=== PATIENT | female | born 1930 | race Caucasian/White ===

== ENCOUNTER 2021-01-13 11:04 | Day surgery (SDC) | payer MEDICARE ==
[~2021-01-13] VITALS: Ht 157.5 cm; Wt 50.0 kg
[2021-01-13 11:54] VITALS: BP 145/66
[2021-01-13] MEDS ORDERED: IV RINGERS,LACTATED 1000ML 1,000 ML IV SCH ×2 (12:00→16:15)
[2021-01-13] MEDS ORDERED: ceFAZolin SODIUM IV Push 1 GM VIAL. IVP ONE (12:15)
[2021-01-13] MEDS ORDERED: PROPOFOL 10 MG/ML (20ML) VIAL. IV ONE (14:03)
[2021-01-13] MEDS ORDERED: LIDOCAINE 2% PF 5 ML VIAL. ONE (14:03)
[2021-01-13] MEDS ORDERED: fentaNYL PF VIAL 100 MCG/2 ML VIAL ONE ×2 (14:04→16:11)
[2021-01-13] MEDS ORDERED: ROCURONIUM 50 MG/5 ML VIAL. ONE (14:06)
[2021-01-13] MEDS ORDERED: TRAM50TA PO (14:26)
[2021-01-13] MEDS ORDERED: PHENYLEPHRINE in 0.9% NACL PF 1 MG/10 ML SYRINGE. IV ONE (14:47)
[2021-01-13] MEDS ORDERED: SEVOFLURANE 61 TO 120 MINUTES. IH ONE (14:58)
[2021-01-13] MEDS ORDERED: ONDANSETRON PF 4 MG/2 ML VIAL. ONE (14:58)
[2021-01-13] MEDS ORDERED: DEXAMETHASONE SOD PHOS 4 MG/ML VIAL ONE (14:58)
[2021-01-13] MEDS ORDERED: BUPIVACAINE MPF 0.25% 30 ML VIAL. ONE (15:07)
[2021-01-13] MEDS ORDERED: NEOSTIGMINE METHYLSULFATE 5 MG/5 ML SYRINGE. ONE (15:08)
[2021-01-13] MEDS ORDERED: GLYCOPYRROLATE 1 MG/5 ML VIAL. ONE (15:08)
--- NOTE | 2021-01-13 15:31 | PDOC4 ---
OPERATIVE NOTE Date: Date: Jan 13, 2021 Pre-Op Diagnosis: Comminuted intra-articular fracture with displacement right distal radius Post-Op Diagnosis: Same Procedure Performed: ORIF right distal radius Surgeon: Yaneli Anesthesia Type: General Blood Loss: 20 cc Specimans Obtained: None Findings: See dictation Complications: None REX MCGREGOR Jr., DO Jan 13, 2021 15:31
[2021-01-13] MEDS ORDERED: SEVOFLURANE 31 TO 60 MINUTES. IH ONE (15:35)
[2021-01-13] MEDS: fentaNYL PF VIAL 100 MCG/2 ML VIAL IVP PRN ×2 (16:14→16:31)
[2021-01-13] MEDS ORDERED: MORPHINE SULFATE 2 MG/ML INJ. IVP PRN (16:15)
[2021-01-13] MEDS ORDERED: HYDROmorphone 2 MG/ML VIAL IVP PRN (16:15)
[2021-01-13] MEDS ORDERED: fentaNYL PF VIAL 100 MCG/2 ML VIAL IVP PRN (16:15)
[2021-01-13] MEDS ORDERED: PROCHLORPERAZINE 10 MG/2 ML VIAL. IVP PRN (16:15)
[2021-01-13 16:28] VITALS: BP 177/96
--- NOTE | 2021-01-13 20:42 | OP ---
DATE OF SURGERY: 01/13/2021 PREOPERATIVE DIAGNOSIS: Comminuted intraarticular displaced fracture, right distal radius. POSTOPERATIVE DIAGNOSIS: Comminuted intraarticular displaced fracture, right distal radius. PROCEDURE: Open reduction and internal fixation, right distal radius. SURGEON: Xavier Groves Jr, DO ANESTHESIA: General. COMPLICATIONS: None. ESTIMATED BLOOD LOSS: 20 mL. Standard dictation for the assistant sales manager. DESCRIPTION OF PROCEDURE: The patient was taken to the operative suite, given a general anesthetic. The right upper extremity was then prepped and draped in a sterile fashion. A L-type of incision was made, beginning toward the radial styloid and centering over the flexor carpi radialis. This was through the skin and subcutaneous tissues. Careful dissection was taken through deeper structures. Neurovascular structures were protected and identified. This was carefully dissected by digital dissection just on the ulnar side of the flexor carpi radialis bringing us down to the pronator quadratus, which was torn at this point. The remainder of this was removed at this point. Following this, the reduction was undertaken. There was satisfactory alignment, but very thin bone distally. Under direct visualization; however, the open reduction was held and the plate was affixed to the volar aspect of the wrist using standard AO technique. Proximal screws were noted to be nonlocking screws. All the distal screws secondary to bone quality as well as need for placement were done under direct visualization with x-ray and it was also done with locking screws. There was satisfactory reduction of the fracture in both AP and lateral projections. The wound was then thoroughly irrigated. Superficial tissues were reapproximated using 3-0 Vicryl in an interrupted fashion. The skin was reapproximated using nylon. This was done in an interrupted fashion. Sterile dressing was applied. Tourniquet was deflated with good return of pulses and capillary refill. After the splint was placed, the patient was then taken from the operative bed to the postoperative bed, taken to the PACU in stable condition. TOSHA DR: Michi TID: [id number]
== END 2021-01-13 17:08 | disposition home or self-care (01) ==
LOC: SURG 11:04
PROVIDERS: ATTEND Orthopaedic Surgery
DX: S52.571A Other intraarticular fracture of lower end of right radius, initial encounter for closed fracture (principal); Z20.828 Contact with and (suspected) exposure to other viral communicable diseases; Z79.899 Other long term (current) drug therapy; Z98.890 Other specified postprocedural states; X58.XXXA Exposure to other specified factors, initial encounter; Y93.89 Activity, other specified; Y92.89 Other specified places as the place of occurrence of the external cause
CPT/HCPCS: 25608; 76000; 87426; A4565; A4930; A6402; A6449; C1713; J0690; J1100; J2370; J2405; J2704; J2710; J3010; J3490

== ENCOUNTER 2021-01-28 14:02 | Inpatient (IN) | payer MEDICARE ==
[~2021-01-28] VITALS: Ht 157.5 cm; Wt 45.8 kg
[~2021-01-28 14:02] MED LIST: TRAM50TA PO
--- NOTE | 2021-01-28 14:45 | RAD ---
XR CHEST 1V INDICATION: cp . COMPARISON STUDY: None. FINDINGS: Lungs: Normal lung volume. No pulmonary mass or consolidation. The tracheobronchial tree and hilar st ructures are normal. Pleura: No pleural effusion or pneumothorax. Heart and Mediastinum: The cardiomediastinal silhouette is normal. Atherosclerosis of the thoracic ao rta. IMPRESSION: No acute cardiopulmonary process. Electronically signed by: Dawit Valdes MD (01/28/2021 2:42 PM) [facility]
--- NOTE | 2021-01-28 15:27 | EKG ---
[facility] [address] [place] [address] Test Date: 2021-01-28 Test Time: 14:47:00 Pat Name: CHAS DAVID Department: Room: Gender: F Security Control Room Officer: : 1930 Requested By: CLAUDIA CRUZ Order Number: [id number] Reading MD: Measurements Intervals [place] Rate: 99 P: AR: QRS: -59 QRSD: 70 T: 69 QT: 330 QTc: 429 Interpretive Statements SINUS RHYTHM ABNORMAL LEFT AXIS DEVIATION LEFT ANTERIOR FASCICULAR BLOCK QRS(T) CONTOUR ABNORMALITY CONSISTENT WITH ANTEROSEPTAL INFARCT AGE UNDETERMINED T ABNORMALITY IN HIGH LATERAL LEADS ABNORMAL ECG RI6.02 No previous ECG available for comparison
--- NOTE | 2021-01-28 15:39 | PHYS DOC ---
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 Reports she never gets out of bed and her roommate called 911 because of this. Also states her left kidney hurts. States if she does get of bed she crawls. Denies any fall, head injury or trauma. Review of Systems: Review of Systems: Constitutional: Denies fever or chills. [] Eyes: Denies change in visual acuity. [] HENT: Denies nasal congestion or sore throat. [] Respiratory: Denies cough or shortness of breath. [] Cardiovascular: Denies chest pain or edema. [] GI: Denies nausea, vomiting, or diarrhea. [] : Denies dysuria or hematuria Musculoskeletal: Denies back pain or joint pain. [] Integument: Denies rash or diaphoresis Neurologic: Denies headache, neck stiffness, focal weakness or sensory changes. [] Endocrine: Denies polyuria or polydipsia. [] Lymphatic: Denies swollen glands. [] Psychiatric: Denies depression or anxiety. [] Heart Score: C/O Chest Pain: No Risk Factors: Risk Factors: DM, Current or recent (<one month) smoker, HTN, HLP, family history of CAD, obesity. Risk Scores: Score 0 - 3: 2.5% MACE over next 6 weeks - Discharge Home Score 4 - 6: 20.3% MACE over next 6 weeks - Admit for Clinical Observation Score 7 - 10: 72.7% MACE over next 6 weeks - Early Invasive Strategies Allergies: Allergies: Allergies Coded Allergies Type Severity Reaction Last Updated Verified No Known Drug Allergies 01/13/21 No Physical Exam: PE: Constitutional: Very thin and frail, no acute distress, non-toxic appearance. HENT: Normocephalic, atraumatic, Eyes: EOMI, conjunctiva normal, no discharge. Neck: Normal range of motion, supple, no nuchal rigidity or meningismus Cardiovascular: S1/2 present, regular rhythm Lungs & Thorax: Speaking in full sentences, bilateral equal chest rise, no tachypnea or increased work of breathing, cannot reproduce any with pain with palpation Abdomen: soft, no tenderness, Skin: Warm, dry, no erythema, no rash. [] Back: No midline spinal step-offs or tenderness, no CVA tenderness. [] Extremities: No tenderness, no cyanosis, Neurologic: Alert,, no focal deficits noted. [] Psychologic: Normal affect, calm mood Current Patient Data: Vital Signs: Vital Signs Date Time Temp Pulse Resp B/P (MAP) Pulse Ox O2 Delivery O2 Flow Rate FiO2 01/28/21 14:10 98.4 103 16 158/74 (102) 93 Room Air 98.4 EKG: EKG: Sinus rhythm 69 bpm, no axis deviation, normal intervals, T wave inversion V2, no ST elevation or ST depression, denies any active chest pressure Radiology/Procedures: Radiology/Procedures: []IMAGING REPORT Signed PATIENT: CHAS DAVID ACCOUNT: [id number] : 1930 LOCATION: ER AGE: 89 SEX: F EXAM STATUS: PRE ER ORD. PHYSICIAN: CLAUDIA CRUZ DO REASON: cp PROCEDURE: PORTABLE CHEST 1V XR CHEST 1V INDICATION: cp . COMPARISON STUDY: None. FINDINGS: Lungs: Normal lung volume. No pulmonary mass or consolidation. The tracheobronchial tree and hilar structures are normal. Pleura: No pleural effusion or pneumothorax. Heart and Mediastinum: The cardiomediastinal silhouette is normal. Atheroscle rosis of the thoracic aorta. IMPRESSION: No acute cardiopulmonary process. Electronically signed by: Medardo Valdes MD (01/28/2021 2:42 PM) [facility] DICTATED and SIGNED BY: MEDARDO VALDES MD DATE: 01/28/21 [id number] IMAGING REPORT Signed PATIENT: CHAS DAVID ACCOUNT: [id number] : 1930 LOCATION: ER AGE: 89 SEX: F EXAM STATUS: REG ER ORD. PHYSICIAN: CLAUDIA CRUZ DO REASON: left rib pain PROCEDURE: CT CHEST WO CONTRAST CT THORAX WO INDICATION: left rib pain COMPARISON STUDY: None. TECHNIQUE: Unenhanced axial images were obtained through the lungs and upper abdomen. Coronal and sagittal multiplanar reconstructions were also obtained. PQRS compliance statement: One or more of the following individualized dose reduction techniques were utilized for this examination: 1. Automated exposure control 2. Adjustment of the mA and/or kV according to patient size 3. Use of iterative reconstruction technique FINDINGS: Lungs and Airways: No pulmonary mass or consolidation. Calcified pulmonary granulomas. Normal central airways. Pleura: The pleural spaces are normal. Heart and Mediastinum: Subcentimeter left thyroid nodule. No axillary or supraclavicular lymphadenopathy. No mediastinal, hilar or retrocrural lymphadenopathy. Calcified mediastinal and hilar lymph nodes consistent with remote granulomatous disease. Normal cardiac size. Coronary artery atherosclerotic disease. Atherosclerosis of the thoracic aorta and branch vessels. Abdomen: Cholecystectomy. Bones and Soft Tissues: T7 and T11 compression deformities, with no osseous retropulsion. Old rib fractures. IMPRESSION: 1. Compression deformities at T7 and T11. Correlate for focal tenderness, and consider MRI if there is concern for acute compression fracture. 2. No pulmonary mass or consolidation. Electronically signed by: Medardo Valdes MD (01/28/2021 4:01 PM) [facility] DICTATED and SIGNED BY: MEDARDO VALDES MD DATE: 01/28/21 [id number] 0 Course & Med Decision Making: Course & Med Decision Making Pertinent Labs and Imaging studies reviewed. (See chart for details) Concern for generalized rib pain, suspected to be chronic HTN and osteoporosis. No other fractures on CT imaging. No history of fall or personal blunt trauma. No midline back pain over thoracic [id number] T7 and T12 compression fractures. Will discharge home with strict ED return precautions were given for incontinence, head injury, confusion or neurologic deficits. Encouraged urgent outpatient follow-up with PMD and orthopedic surgery for compression fractures and pain management. Life-threatening processes were considered but are low suspicion at this time, given history, physical exam and ED workup. Pt was educated on all prescription medications and adverse effects. All patient's questions were answered and pt was stable at time of discharge. Life/limb-threatening differential includes but is not limited to, aortic dissection/aneurysm, cauda equina syndrome, transverse myelitis, spinal cord/e pidural compression syndromes, discitis, spinal stenosis, epidural abscess or hematoma, osteomyelitis, disc herniation, surgical abdomen, stable or unstable fracture, renal/ureteral colic, sepsis, meningitis, musculoskeletal injury, traumatic injury, intraabdominal/retroperitoneal or pelvic bleeding. I have spoken with the patient and/or caregivers. I explained the patient's condition, diagnoses and treatment plan based on the information available to me at this time. I have answered the patient and/or caregiver's questions and addressed any concerns. The patient and/or caregivers have a good understanding of patient's diagnosis, condition and treatment plan as can be expected at this point. Vital signs have been stable. Patient's condition is stable and appropriate for discharge from the emergency department. Patient will pursue further outpatient evaluation with primary care physician or other designated or consulting physician as outlined in the discharge instructions. The patient and/or caregivers are agreeable to this plan of care and follow-up instructions have been explained in detail. The patient and/or caregivers have received these instructions in written form and have expressed an understanding of the discharge instructions. The patient and/or caregivers are aware that any significant change of condition or worsening of symptoms should prompt immediate return to this or the closest emergency department or call to 911. Mat Disclaimer: Mat Disclaimer: This electronic medical record was generated, in whole or in part, using a voice recognition dictation system. Departure Departure Impression: Primary Impression: Generalized pain Additional Impression: Thoracic compression fracture Disposition: 01 HOME / SELF CARE / HOMELESS Condition: STABLE Referrals: CORIE VEGA (PCP) Follow-up with your primary care physician in 24 to 48 hours OR FOLLOW UP WITH FAMILY MEDICINE: [address] [facility], [facility] [address] [place] [address] Patient Instructions: Back, Compression Fracture, Chronic Pain Management Additional Instructions: FOLLOW UP WITH ORTHOPEDICS: FOR DEFINITIVE MANAGEMENT thoracic compression fracture Orthopaedic Surgery [address] [facility] [place] [address] FOLLOW UP WITH PAIN MANAGEMENT: FOR DEFINITIVE MANAGEMENT [facility] [address] [facility], [facility] [address] [place] [address] EMERGENCY DEPARTMENT GENERAL DISCHARGE INSTRUCTIONS Thank you for coming to [facility] Emergency Department (ED) today and trusting us with you care. We trust that you had a positive experience in our Emergency Department. If you wish to speak to the department management, you may call the Director at [phone]. YOUR FOLLOW UP INSTRUCTIONS ARE FOLLOWS: 1. Do you have a private Doctor? If you do not have a private doctor, please ask for a resource list of physicians or clinics that may be able to assist you with follow up care. 2. The Emergency Physicain has interpreted your x-rays. The X-Ray specialist will also review them. If there is a change in the findings, you will be notified in 48 hours when at all possible. 3. A lab test or culture has been done, your results will be reviewed and you will be notified if you need a change in treatment. ADDITIONAL INSTRUCTIONS AND INFORMATION: 1. Your care today has been supervised by a physician who is specially trained in emergency care. Many problems require more than one evaluation for a complete diagnosis and treatment. We recommend that you schedule your follow up appointment as recommended to ensure complete treatment of you illness or injury. If you are unable to obtain follow up care and continue to have a problem, or if your condition worsens, we recommend that you return to the ED. 2. We are not able to safely determine your condition over the phone nor are we able to give sound medical advice over the phone. For these safety reasons, if you call for medical advice we will ask you to come to the ED for further evaluation. 3. If you have any questions regarding these discharge instructions please call the ED at [phone]. SAFETY INFORMATION: In the interest of safety, wellness, and injury prevention; we encourage you to wear your sealbelt, if you smoke; quite smoking, and we encourage family to use a protective helmet for bicycling and other sporting events that present an increased risk for head injury. IF YOUR SYMPTOMS WORSEN OR NEW SYMPTOMS DEVELOP, OR YOU HAVE CONCERNS ABOUT YOUR CONDITION; OR IF YOUR CONDITION WORSENS WHILE YOU ARE WAITING FOR YOUR FOLLOW UP APPOINTMENT; EITHER CONTACT YOUR PRIMARY CARE DOCTOR, THE PHYSICIAN WHOSE NAME AND NUMBER YOU WERE GIVEN, OR RETURN TO THE ED IMMEDIATELY. CLAUDIA CRUZ DO Jan 28, 2021 15:39
[2021-01-28 15:50] LABS: BARBITURATES NEG (NEG); BENZODIAZEPINES NEG (NEG); CANNABINOIDS NEG (NEG); COCAINE NEG (NEG); METHADONE NEG (NEG); OPIATES NEG (NEG); PHENCYCLIDINE NEG (NEG)
[2021-01-28 15:52] LABS: AMPHETAMINE/METHAMPHETAMINE NEG (NEG)
[2021-01-28 15:57] LABS: BILIRUBIN,URINE NEGATIVE (NEG); CLARITY,URINE CLOUDY; COLOR,URINE YELLOW; NITRITE,URINE POSITIVE (NEG); PH,URINE 5.5 (<5.0-8.0); PROTEIN,URINE 30 mg/dL (NEG-TRACE)
--- NOTE | 2021-01-28 16:03 | RAD ---
CT THORAX WO INDICATION: left rib pain COMPARISON STUDY: None. TECHNIQUE: Unenhanced axial images were obtained through the lungs and upper abdomen. Coronal and sa gittal multiplanar reconstructions were also obtained. PQRS compliance statement: One or more of the following individualized dose reduction techniques were utilized for this examinat ion: 1. Automated exposure control 2. Adjustment of the mA and/or kV according to patient size 3. Use of iterative reconstruction technique FINDINGS: Lungs and Airways: No pulmonary mass or consolidation. Calcified pulmonary granulomas. Normal central airways. Pleura: The pleural spaces are normal. Heart and Mediastinum: Subcentimeter left thyroid nodule. No axillary or supraclavicular lymphadenopa thy. No mediastinal, hilar or retrocrural lymphadenopathy. Calcified mediastinal and hilar lymph node s consistent with remote granulomatous disease. Normal cardiac size. Coronary artery atherosclerotic disease. Atherosclerosis of the thoracic aorta and branch vessels. Abdomen: Cholecystectomy. Bones and Soft Tissues: T7 and T11 compression deformities, with no osseous retropulsion. Old rib fra ctures. IMPRESSION: 1. Compression deformities at T7 and T11. Correlate for focal tenderness, and consider MRI if there i s concern for acute compression fracture. 2. No pulmonary mass or consolidation. Electronically signed by: Dawit Valdes MD (01/28/2021 4:01 PM) [facility]
[2021-01-28 16:13] LABS: BACTERIA,URINE MANY /HPF (0-FEW); WBC,URINE TNTC /HPF (0-4)
[2021-01-28 16:27] LABS: BASO % 1 % (0-3); EOS # 0.1 x10^3/uL (0.0-0.7); EOS % 2 % (0-3); HEMATOCRIT 42.9 % (36.0-47.0); HEMOGLOBIN 14.4 g/dL (12.0-15.5); LYMPH # 0.9 x10^3/uL (1.0-4.8); LYMPH % 18 % (24-48); MEAN CORPUSCULAR HEMOGLOBIN 30 pg (25-35); MEAN CORPUSCULAR HGB CONC 34 g/dL (31-37); MEAN CORPUSCULAR VOLUME 89 fL (79-100); MONO # 0.8 x10^3/uL (0.0-1.1); MONO % 15 % (0-9); NEUT # 3.2 x10^3/uL (1.8-7.7); NEUT % 64 % (31-73); PLATELET COUNT 98 x10^3/uL (140-400); RED BLOOD COUNT 4.84 x10^6/uL (3.50-5.40); RED CELL DISTRIBUTION WIDTH 14.5 % (11.5-14.5)
[2021-01-28 16:41] LABS: GFR 52.3; POTASSIUM 4.4 mmol/L (3.5-5.1)
[2021-01-28] MEDS ORDERED: FOSFOMYCIN TROMETHAMINE 3 GM PACKET PO ONE (16:45)
[2021-01-28 16:47] LABS: ALBUMIN 3.3 g/dL (3.4-5.0); ALBUMIN/GLOBULIN RATIO 1.1 (1.0-1.7); TOTAL PROTEIN 6.2 g/dL (6.4-8.2)
[2021-01-28] MEDS ORDERED: ONDANSETRON PF 4 MG/2 ML VIAL. IVP PRN (20:00)
[2021-01-28] MEDS: IV NORMAL SALINE 1000ML BAG 1,000 ML IV SCH (20:00)
--- NOTE | 2021-01-28 22:20 | NUR ---
Admit from ER via [facility] to [facility] room 674. Alert. Talkative. Pleasant. 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 Cardizem drip infusing at 5mg/HR on arrival. Drip started in ER. Transferred from [facility] to bed with 3 person lift. Orientated to room and call light. Reviewed POC to include Card drip and Tele monitor. Instructed to call for assist while out of bed. Verbalized understanding. Resting in bed . Call light at hand. Bed alarm on.
[2021-01-28 23:35] VITALS: BP 135/67
[2021-01-28 23:42] VITALS: BP 114/59
--- NOTE | 2021-01-28 23:55 | EKG ---
[facility] [address] [place] [address] Test Date: 2021-01-28 Test Time: 20:31:33 Pat Name: CHAS DAVID Department: Room: Gender: F Compactor Driver: : 1930 Requested By: CLAUDIA CRUZ Order Number: [id number] Reading MD: Measurements Intervals [place] Rate: 162 P: ND: QRS: -71 QRSD: 66 T: 83 QT: 282 QTc: 470 Interpretive Statements IRREGULAR RHYTHM, NO P-WAVE FOUND ABNORMAL LEFT AXIS DEVIATION LEFT ANTERIOR FASCICULAR BLOCK QRS(T) CONTOUR ABNORMALITY CONSIDER ANTEROSEPTAL MYOCARDIAL DAMAGE T ABNORMALITY IN HIGH LATERAL LEADS ABNORMAL ECG RI6.01 No previous ECG available for comparison
[2021-01-29] VITALS (16 sets, daily range): BP systolic 82–160; BP diastolic 48–96
[2021-01-29] MEDS: IV NORMAL SALINE 1000ML BAG 1,000 ML IV SCH (09:20)
--- NOTE | 2021-01-29 09:48 | PDOC1 ---
History and Physical Date of Admission Date of Admission DATE: 01/29/21 TIME: 09:47 Identification/Chief Complaint Chief Complaint back and rib pain, inability to ambulate, new onset a fib in ER , A FIB RVR rib cage pain. / around her left breast area History of Present Illness History of Present Illness 89 yo blind F presented to the ED brought in by EMS stating "My ribs hurt all over, I am just old." she "has a knot" in her left breast. Reports limited mobility roommate called 911 because of this. / her left kidney hurts. States if she does get of bed she crawls. Denies any fall, head injury or trauma. / No midline back pain over thoracic uisgn-[id number] ct c/w T7 and T12 compression fractures TROPONIN I NEG X 3 Admitted with chest wall pain, tachycardia, inability for self care, patient is legally blind, noted to be hypotensive, iv fluids ordered, probable UTI , Noted to be in afib with RVR , new onset TACHYCARDIA likely associated with acute pain/ Afib RVR iv CARDIZEM DRIP STARTED IN ER Past Medical History Past Medical History Past Medical History Past Surgical History: Other Additional Past Surgical Histo: unknown Smoking Status: Never Smoker Alcohol Use: None FHX HTN Cardiovascular: HTN Hepatobiliary: No pertinent hx Musculoskeletal: low back pain, Osteoarthritis Renal/: No pertinent hx, Chronic renal insuff Dermatology: No pertinent hx Family History Family History: Hypertension Social History Smoke: No ALCOHOL: none Drugs: None Current Problem List Problem List Problems Medical Problems: (1) Generalized pain Status: Acute (2) Thoracic compression fracture Status: Acute Current Medications Current Medications Current Medications Fosfomycin Tromethamine (Monurol) 3 gm 1X ONCE PO Last administered on 01/28/21at 17:05; Start 01/28/21 at 16:45; Stop 01/28/21 at 16:46; Status DC Ondansetron HCl (Zofran) 4 mg PRN Q8HRS PRN IVP NAUSEA/VOMITING; Start 01/28/21 at 20:00; Stop 01/29/21 at 19:59 Sodium Chloride 1,000 ml @ 75 mls/hr [id number] IV Last administered on 01/28/21at 20:00; Start 01/28/21 at 20:00; Stop 9/15/21 at 19:59 Diltiazem HCl (Cardizem Iv Push) 10 mg 1X ONCE IVP Last administered on 01/28/21at 21:00; Start 01/28/21 at 21:00; Stop 01/28/21 at 21:01; Status DC Diltiazem HCl 125 mg/Sodium Chloride 125 ml @ 5 mls/hr 1X ONCE IV Last administered on 01/28/21at 20:59; Start 01/28/21 at 21:00; Stop 01/29/21 at 21:59 Active Scripts Active Reported No Known Medications Prior To Admisstion (Info) Each 1 Each DAILY Allergies Allergies: Coded Allergies: No Known Drug Allergies (Unverified , 01/13/21) ROS Review of System 14 PT ROS OTHERWISE NEG General: YES: Fatigue; No: Chills, Night Sweats, Malaise, Appetite, Other PSYCHOLOGICAL ROS: YES: Anxiety; No: Behavioral Disorder, Concentration difficultie, Decreased libido, Depression, Disorientation, Hallucinations, Hostility, Irritablity, Memory difficulties, Mood Swings, Obsessive thoughts, Physical abuse, Sexual abuse, Sleep disturbances, Suicidal ideation, Other Eyes: Yes Loss of vision HEENT: No: Heacaches, Visual Changes, Hearing change, Nasal congestion, Nasal discharge, Oral lesions, Sinus pain, Sore Throat, Epistaxis, Sneezing, Snoring, Tinnitus, Vertigo, Vocal changes, Other ALLERGY AND IMMUNOLOGY: No: Hives, Insect Bite Sensitivity, Itchy/Watery Eyes, Nasal Congestion, Post Nasal Drip, Seasonal Allergies, Other Hematological and Lymphatic: No: Bleeding Problems, Blood Clots, Blood Transfusions, Brusing, Night Sweats, Pallor, Swollen Lymph Nodes, Other ENDOCRINE: No: Breast Changes, Galactorrhea, Hair Pattern Changes, Hot Flashes, Malaise/lethargy, Mood Swings, Palpitations, Polydipsia/polyuria, Skin Changes, Temperature Intolerance, Unexpected Weight Changes, Other Breast: No New/Changing Breast Lumps, No Nipple changes, No Nipple discharge, No Other Respiratory: No: Cough, Hemoptysis, Orthopnea, Pleuritic Pain, Shortness of breath, SOB with excertion, Sputum Changes, Stridor, Tachypnea, Wheezing, Other Cardiovascular: No Chest Pain, No Palpitations, No Orthopnea, No Paroxysmal Noc. Dyspnea, No Edema, No Lt Headedness, No Other Gastrointestinal: No Nausea, No Vomiting, No Abdominal Pain, No Diarrhea, No Constipation, No Melena, No Hematochezia, No Other Genitourinary: No Dysuria, No Frequency, No Incontinence, No Hematuria, No Retention, No Discharge, No Urgency, No Pain, No Flank Pain, No Other, No , No , No , No , No , No , No Musculoskeletal: Yes Gait Disturbance, Yes Joint Stiffness, Yes Muscular Weakness Neurological: Yes Gait Disturbance; No Behavorial Changes, No Bowel/Bladder ControlChng, No Confusion, No Dizziness, No Headaches, No Impaired Coord/balance, No Memory Loss, No Numbness/Tingling, No Seizures, No Speech Problems, No Tremors, No Visual Changes, No Weakness, No Other Skin: Yes Dry Skin; No Eczema, No Hair Changes, No Lumps, No Mole Changes, No Mottling, No Nail Changes, No Pruritus, No Rash, No Skin Lesion Changes, No Other, No Acne Physical Exam General: Alert, Oriented X3, Cooperative, No acute distress HEENT: Atraumatic, Mucous membr. moist/pink, Other (BLIND) Heart: RRR, no thrills, no rubs, no gallops, irregularly irregular Breasts: Not examined Abdomen: Normal bowel sounds, Soft, No tenderness, Other (thin) Rectal Exam: not examined PELVIC: Examination not indicated Extremities: No clubbing, No cyanosis Skin: No significant lesion Neuro: Normal speech Psych/Mental Status: Mental status NL, Mood NL Vitals Vitals Vital Signs Date Time Temp Pulse Resp B/P (MAP) Pulse Ox O2 Delivery O2 Flow Rate FiO2 01/29/21 07:00 97.8 82 18 106/58 (74) 94 Room Air 97.8 Labs Labs Laboratory Tests Test 01/28/21 15:34 01/28/21 16:00 01/28/21 20:30 01/28/21 23:00 Urine Collection Type Unknown Urine Color Yellow Urine Clarity Cloudy Urine pH 5.5 (<5.0-8.0) Urine Specific [place] 1.020 (1.000-1.030) Urine Protein 30 mg/dL (NEG-TRACE) Urine Glucose (UA) Negative mg/dL (NEG) Urine Ketones (Stick) Negative mg/dL (NEG) Urine Blood Small (NEG) Urine Nitrite Positive (NEG) Urine Bilirubin Negative (NEG) Urine Urobilinogen Dipstick 1.0 mg/dL (0.2 mg/dL) Urine Leukocyte Esterase Large (NEG) Urine RBC 1-2 /HPF (0-2) Urine WBC Tntc /HPF (0-4) Urine Squamous Epithelial Cells Mod /LPF Urine Bacteria Many /HPF (0-FEW) Urine Opiates Screen Neg (NEG) Urine Methadone Screen Neg (NEG) Urine Barbiturates Neg (NEG) Urine Phencyclidine Screen Neg (NEG) Urine Amphetamine/Methamphetamine Neg (NEG) Urine Benzodiazepines Screen Neg (NEG) Urine Cocaine Screen Neg (NEG) Urine Cannabinoids Screen Neg (NEG) Urine Ethyl Alcohol Neg (NEG) White Blood Count 5.0 x10^3/uL (4.0-11.0) Red Blood Count 4.84 x10^6/uL (3.50-5.40) Hemoglobin 14.4 g/dL (12.0-15.5) Hematocrit 42.9 % (36.0-47.0) Mean Corpuscular Volume 89 fL (79-100) Mean Corpuscular Hemoglobin 30 pg (25-35) Mean Corpuscular Hemoglobin Concent 34 g/dL (31-37) Red Cell Distribution Width 14.5 % (11.5-14.5) Platelet Count 98 x10^3/uL (140-400) Neutrophils (%) (Auto) 64 % (31-73) Lymphocytes (%) (Auto) 18 % (24-48) Monocytes (%) (Auto) 15 % (0-9) Eosinophils (%) (Auto) 2 % (0-3) Basophils (%) (Auto) 1 % (0-3) Neutrophils # (Auto) 3.2 x10^3/uL (1.8-7.7) Lymphocytes # (Auto) 0.9 x10^3/uL (1.0-4.8) Monocytes # (Auto) 0.8 x10^3/uL (0.0-1.1) Eosinophils # (Auto) 0.1 x10^3/uL (0.0-0.7) Basophils # (Auto) 0.0 x10^3/uL (0.0-0.2) Sodium Level 140 mmol/L (136-145) Potassium Level 4.4 mmol/L (3.5-5.1) Chloride Level 105 mmol/L (98-107) Carbon Dioxide Level 30 mmol/L (21-32) Anion Gap 5 (6-14) Blood Urea Nitrogen 12 mg/dL (7-20) Creatinine 1.0 mg/dL (0.6-1.0) Estimated GFR (Cockcroft-Gault) 52.3 BUN/Creatinine Ratio 12 (6-20) Glucose Level 123 mg/dL (70-99) Calcium Level 9.0 mg/dL (8.5-10.1) Magnesium Level 2.0 mg/dL (1.8-2.4) Total Bilirubin 1.0 mg/dL (0.2-1.0) Aspartate Amino Transf (AST/SGOT) 26 U/L (15-37) Alanine Aminotransferase (ALT/SGPT) 27 U/L (14-59) Alkaline Phosphatase 104 U/L (46-116) Troponin I Quantitative < 0.017 ng/mL (0.000-0.055) < 0.017 ng/mL (0.000-0.055) XU-Hbk-S-Type Natriuretic Peptide 573 pg/mL (0-449) Total Protein 6.2 g/dL (6.4-8.2) Albumin 3.3 g/dL (3.4-5.0) Albumin/Globulin Ratio 1.1 (1.0-1.7) Lipase 206 U/L (73-393) SARS-CoV-2 Antigen (Rapid) Negative (NEGATIVE) Test 01/29/21 04:00 Troponin I Quantitative 0.020 ng/mL (0.000-0.055) Laboratory Tests Test 01/28/21 15:34 01/28/21 16:00 01/28/21 20:30 01/28/21 23:00 Urine Collection Type Unknown Urine Color Yellow Urine Clarity Cloudy Urine pH 5.5 (<5.0-8.0) Urine Specific [place] 1.020 (1.000-1.030) Urine Protein 30 mg/dL (NEG-TRACE) Urine Glucose (UA) Negative mg/dL (NEG) Urine Ketones (Stick) Negative mg/dL (NEG) Urine Blood Small (NEG) Urine Nitrite Positive (NEG) Urine Bilirubin Negative (NEG) Urine Urobilinogen Dipstick 1.0 mg/dL (0.2 mg/dL) Urine Leukocyte Esterase Large (NEG) Urine RBC 1-2 /HPF (0-2) Urine WBC Tntc /HPF (0-4) Urine Squamous Epithelial Cells Mod /LPF Urine Bacteria Many /HPF (0-FEW) Urine Opiates Screen Neg (NEG) Urine Methadone Screen Neg (NEG) Urine Barbiturates Neg (NEG) Urine Phencyclidine Screen Neg (NEG) Urine Amphetamine/Methamphetamine Neg (NEG) Urine Benzodiazepines Screen Neg (NEG) Urine Cocaine Screen Neg (NEG) Urine Cannabinoids Screen Neg (NEG) Urine Ethyl Alcohol Neg (NEG) White Blood Count 5.0 x10^3/uL (4.0-11.0) Red Blood Count 4.84 x10^6/uL (3.50-5.40) Hemoglobin 14.4 g/dL (12.0-15.5) Hematocrit 42.9 % (36.0-47.0) Mean Corpuscular Volume 89 fL (79-100) Mean Corpuscular Hemoglobin 30 pg (25-35) Mean Corpuscular Hemoglobin Concent 34 g/dL (31-37) Red Cell Distribution Width 14.5 % (11.5-14.5) Platelet Count 98 x10^3/uL (140-400) Neutrophils (%) (Auto) 64 % (31-73) Lymphocytes (%) (Auto) 18 % (24-48) Monocytes (%) (Auto) 15 % (0-9) Eosinophils (%) (Auto) 2 % (0-3) Basophils (%) (Auto) 1 % (0-3) Neutrophils # (Auto) 3.2 x10^3/uL (1.8-7.7) Lymphocytes # (Auto) 0.9 x10^3/uL (1.0-4.8) Monocytes # (Auto) 0.8 x10^3/uL (0.0-1.1) Eosinophils # (Auto) 0.1 x10^3/uL (0.0-0.7) Basophils # (Auto) 0.0 x10^3/uL (0.0-0.2) Sodium Level 140 mmol/L (136-145) Potassium Level 4.4 mmol/L (3.5-5.1) Chloride Level 105 mmol/L (98-107) Carbon Dioxide Level 30 mmol/L (21-32) Anion Gap 5 (6-14) Blood Urea Nitrogen 12 mg/dL (7-20) Creatinine 1.0 mg/dL (0.6-1.0) Estimated GFR (Cockcroft-Gault) 52.3 BUN/Creatinine Ratio 12 (6-20) Glucose Level 123 mg/dL (70-99) Calcium Level 9.0 mg/dL (8.5-10.1) Magnesium Level 2.0 mg/dL (1.8-2.4) Total Bilirubin 1.0 mg/dL (0.2-1.0) Aspartate Amino Transf (AST/SGOT) 26 U/L (15-37) Alanine Aminotransferase (ALT/SGPT) 27 U/L (14-59) Alkaline Phosphatase 104 U/L (46-116) Troponin I Quantitative < 0.017 ng/mL (0.000-0.055) < 0.017 ng/mL (0.000-0.055) MU-Xfu-W-Type Natriuretic Peptide 573 pg/mL (0-449) Total Protein 6.2 g/dL (6.4-8.2) Albumin 3.3 g/dL (3.4-5.0) Albumin/Globulin Ratio 1.1 (1.0-1.7) Lipase 206 U/L (73-393) SARS-CoV-2 Antigen (Rapid) Negative (NEGATIVE) Test 01/29/21 04:00 Troponin I Quantitative 0.020 ng/mL (0.000-0.055) Images Images STATUS: REG ER ORD. PHYSICIAN: CLAUDIA CRUZ DO REASON: left rib pain PROCEDURE: CT CHEST WO CONTRAST CT THORAX WO INDICATION: left rib pain COMPARISON STUDY: None. TECHNIQUE: Unenhanced axial images were obtained through the lungs and upper abdomen. Coronal and sagittal multiplanar reconstructions were also obtained. PQRS compliance statement: One or more of the following individualized dose reduction techniques were utilized for this examination: 1. Automated exposure control 2. Adjustment of the mA and/or kV according to patient size 3. Use of iterative reconstruction technique FINDINGS: Lungs and Airways: No pulmonary mass or consolidation. Calcified pulmonary granulomas. Normal central airways. Pleura: The pleural spaces are normal. Heart and Mediastinum: Subcentimeter left thyroid nodule. No axillary or supraclavicular lymphadenopathy. No mediastinal, hilar or retrocrural lymphadenopathy. Calcified mediastinal and hilar lymph nodes consistent with remote granulomatous disease. Normal cardiac size. Coronary artery atherosclerotic disease. Atherosclerosis of the thoracic aorta and branch vessels. Abdomen: Cholecystectomy. Bones and Soft Tissues: T7 and T11 compression deformities, with no osseous retropulsion. Old rib fractures. IMPRESSION: 1. Compression deformities at T7 and T11. Correlate for focal tenderness, and consider MRI if there is concern for acute compression fracture. 2. No pulmonary mass or consolidation. Electronically signed by: Dawit Valdes MD (01/28/2021 4:01 PM) [facility] VTE Prophylaxis Ordered VTE Prophylaxis Devices: No VTE Pharmacological Prophylaxi: Yes Assessment/Plan Assessment/Plan IMPRESSION: Acute generalized pain rib cage pain. / her left breast area Inability to ambulate Compression deformities at T7 and T11. with focal tenderness, TACHYCARDIA likely associated with acute pain/ Afib RVR Legal blindness PLAN ADMIT Consult DR MCGUIRE Consult cardiology Marian coates started in ER PT/OT ECHO Rehab consult SNU eval Orthostatic BP/ PULSE MCOT TTE and TSH. DVT PROPHYLAXIS consider asking Interventional Radiology for consideration of kyphoplasty D/W ER Justifications for Admission Other Justification ELADIO BELL MD Jan 29, 2021 09:48
--- NOTE | 2021-01-29 11:05 | PDOC2 ---
KHUSHBOO LIM NURSE DISCHARGE 01/29/21 1105: CARDIAC CONSULT DATE OF CONSULT Date of Consult DATE: 01/29/21 TIME: 10:41 REASON FOR CONSULT Reason for Consult: Tachycardia REFERRING PHYSICIAN Referring Physician: Dyan SOURCE Source: Chart review, Patient HISTORY OF PRESENT ILLNESS HISTORY OF PRESENT ILLNESS This is an 89 yo female admitted for complains of rib cage pain. This is around her left breast area. She has not been getting around lately and complains of back pain to left side lower. Pain is so significant that she has not been able to walk. No complains of SOA. She is a poor historian. She does remember falling and fainting about 2 months ago. Her pain to her left back has been ongoing and has been getting worse. Denies any past hx of arrhythmias nor CAD or VTE. She is blind but she could not tell me the etiology. Consult is for tachycardia and likely MAT. PAST MEDICAL HISTORY Past Medical History blind, fall PAST SURGICAL HISTORY Past Surgical History ORIF right distal radius 01/13/2021 FAMILY HISTORY Family History noncontributory to age SOCIAL HISTORY Smoke: No ALCOHOL: none Drugs: None Lives: Friends CURRENT MEDICATIONS CURRENT MEDICATIONS Current Medications Medications (Trade) Dose Ordered Sig/Asif Route PRN Reason Start Time Stop Time Status Last Admin Dose Admin Fosfomycin Tromethamine (Monurol) 3 gm 1X ONCE PO 01/28/21 16:45 01/28/21 16:46 DC 01/28/21 17:05 Sodium Chloride 1,000 ml @ 75 mls/hr [id number] IV 01/28/21 20:00 01/29/21 19:59 01/29/21 09:20 Diltiazem HCl (Cardizem Iv Push) 10 mg 1X ONCE IVP 01/28/21 21:00 01/28/21 21:01 DC 01/28/21 21:00 Diltiazem HCl 125 mg/Sodium Chloride 125 ml @ 5 mls/hr 1X ONCE IV 01/28/21 21:00 01/29/21 21:59 01/28/21 20:59 ALLERGIES ALLERGIES: Coded Allergies: No Known Drug Allergies (Unverified , 01/13/21) ROS Review of System limited, poor historian PHYSICAL EXAM General: Alert, Oriented X3, Cooperative, No acute distress HEENT: Atraumatic, Mucous membr. moist/pink, Other (blind OU) Lungs: Clear to auscultation, Normal air movement Heart: Regular rate (WAP), Normal S1, Normal S2, Other (2/6 ssytolic murmur to LLS border) Abdomen: Soft, No tenderness Extremities: No cyanosis, No edema Skin: No breakdown, No significant lesion Neuro: Normal speech, Sensation intact Psych/Mental Status: Mental status NL, Mood NL MUSCULOSKELETAL: Osteoarthritic changes both hands VITALS/I&O VITALS/I&O: Vital Signs Date Time Temp Pulse Resp B/P (MAP) Pulse Ox O2 Delivery O2 Flow Rate FiO2 01/29/21 07:00 97.8 82 18 106/58 (74) 94 Room Air 97.8 I & O 01/28/21 01/28/21 01/29/21 15:00 23:00 07:00 Intake Total 0 ml Output Total 300 ml Balance -300 ml LABS Lab: Laboratory Tests Test 01/28/21 15:34 01/28/21 16:00 01/28/21 20:30 01/28/21 23:00 Urine Collection Type Unknown Urine Color Yellow Urine Clarity Cloudy Urine pH 5.5 (<5.0-8.0) Urine Specific [place] 1.020 (1.000-1.030) Urine Protein 30 mg/dL (NEG-TRACE) Urine Glucose (UA) Negative mg/dL (NEG) Urine Ketones (Stick) Negative mg/dL (NEG) Urine Blood Small (NEG) Urine Nitrite Positive (NEG) Urine Bilirubin Negative (NEG) Urine Urobilinogen Dipstick 1.0 mg/dL (0.2 mg/dL) Urine Leukocyte Esterase Large (NEG) Urine RBC 1-2 /HPF (0-2) Urine WBC Tntc /HPF (0-4) Urine Squamous Epithelial Cells Mod /LPF Urine Bacteria Many /HPF (0-FEW) Urine Opiates Screen Neg (NEG) Urine Methadone Screen Neg (NEG) Urine Barbiturates Neg (NEG) Urine Phencyclidine Screen Neg (NEG) Urine Amphetamine/Methamphetamine Neg (NEG) Urine Benzodiazepines Screen Neg (NEG) Urine Cocaine Screen Neg (NEG) Urine Cannabinoids Screen Neg (NEG) Urine Ethyl Alcohol Neg (NEG) White Blood Count 5.0 x10^3/uL (4.0-11.0) Red Blood Count 4.84 x10^6/uL (3.50-5.40) Hemoglobin 14.4 g/dL (12.0-15.5) Hematocrit 42.9 % (36.0-47.0) Mean Corpuscular Volume 89 fL (79-100) Mean Corpuscular Hemoglobin 30 pg (25-35) Mean Corpuscular Hemoglobin Concent 34 g/dL (31-37) Red Cell Distribution Width 14.5 % (11.5-14.5) Platelet Count 98 x10^3/uL (140-400) L Neutrophils (%) (Auto) 64 % (31-73) Lymphocytes (%) (Auto) 18 % (24-48) L Monocytes (%) (Auto) 15 % (0-9) H Eosinophils (%) (Auto) 2 % (0-3) Basophils (%) (Auto) 1 % (0-3) Neutrophils # (Auto) 3.2 x10^3/uL (1.8-7.7) Lymphocytes # (Auto) 0.9 x10^3/uL (1.0-4.8) L Monocytes # (Auto) 0.8 x10^3/uL (0.0-1.1) Eosinophils # (Auto) 0.1 x10^3/uL (0.0-0.7) Basophils # (Auto) 0.0 x10^3/uL (0.0-0.2) Sodium Level 140 mmol/L (136-145) Potassium Level 4.4 mmol/L (3.5-5.1) Chloride Level 105 mmol/L (98-107) Carbon Dioxide Level 30 mmol/L (21-32) Anion Gap 5 (6-14) L Blood Urea Nitrogen 12 mg/dL (7-20) Creatinine 1.0 mg/dL (0.6-1.0) Estimated GFR (Cockcroft-Gault) 52.3 BUN/Creatinine Ratio 12 (6-20) Glucose Level 123 mg/dL (70-99) H Calcium Level 9.0 mg/dL (8.5-10.1) Magnesium Level 2.0 mg/dL (1.8-2.4) Total Bilirubin 1.0 mg/dL (0.2-1.0) Aspartate Amino Transferase (AST) 26 U/L (15-37) Alanine Aminotransferase (ALT) 27 U/L (14-59) Alkaline Phosphatase 104 U/L (46-116) Troponin I Quantitative < 0.017 ng/mL (0.000-0.055) < 0.017 ng/mL (0.000-0.055) KN-Syd-N-Type Natriuretic Peptide 573 pg/mL (0-449) H Total Protein 6.2 g/dL (6.4-8.2) L Albumin 3.3 g/dL (3.4-5.0) L Albumin/Globulin Ratio 1.1 (1.0-1.7) Lipase 206 U/L (73-393) SARS-CoV-2 Antigen (Rapid) Negative (NEGATIVE) Test 01/29/21 04:00 Troponin I Quantitative 0.020 ng/mL (0.000-0.055) Laboratory Tests 01/28/21 16:00 Laboratory Tests 01/28/21 16:00 ASSESSMENT/PLAN ASSESSMENT/PLAN 1. Atypical Chest pain: likely due to T7 and 11 compression fractures more likely sustained from prior fall 2. S/P ORIF right wrist recent ue to fall 3. Syncope with traumatic fall: occurred over amonth ago leading to wrist fracture 4. 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 Arrhythmia: PSVT. Also WAP/MAT. Maintaining SR 80s 6. UTI: per PCP Recommendations 1. Rehab consult 2. SNU eval 3. Orthostatic readings 4. MCOT 5. TTE and TSH. 6. BP would not be able to accommodate. Dig PRN GUERDA CUELLAR MD 01/30/21 1255: CARDIAC CONSULT ASSESSMENT/PLAN ASSESSMENT/PLAN Patient seen and examined 01/29/2021. Agree with [facility] OPERATOR's assessment and plan. Chest pain with atypical features and most probably musculoskeletal. Telemetry with episodes of atrial tachycardia noted. Check 2D echo to assess LV systolic function. Plan for outpatient event monitor recording Thank you for your consultation KHUSHBOO LIM APRN Jan 29, 2021 11:05 GUERDA CUELLAR MD Jan 30, 2021 12:55
[2021-01-29] MEDS: cefTRIAXone IV Push 1 GM VIAL. IVP SCH (11:52)
[2021-01-29] MEDS ORDERED: MAG HYDROX/ALUMINUM HYD/SIMETH 30 ML ORAL.SUSP PO PRN (13:30)
[2021-01-29] MEDS ORDERED: ALBUTEROL SULFATE 2.5 MG/3 ML NEBU. NEB PRN (13:30)
[2021-01-29] MEDS ORDERED: guaiFENesin ORAL 200 MG/10 ML LIQUID. PO PRN (13:30)
[2021-01-29] MEDS ORDERED: 0.9 % SODIUM CHLORIDE 10 ML DISP.SYRIN. IV PRN (13:30)
[2021-01-29] MEDS ORDERED: ACETAMINOPHEN 325 MG TABLET. PO PRN (13:30)
[2021-01-29] MEDS ORDERED: DOCUSATE SODIUM 100 MG CAPSULE. PO PRN (13:30)
[2021-01-29] MEDS: ENOXAPARIN 30 MG/0.3 ML SYRINGE. SQ SCH (14:00)
--- NOTE | 2021-01-29 14:44 | NUR ---
SS following for discharge planning. SS reviewed pt chart and discussed with pt RN. Pt is from home and is currently on room air. COVID19 negative. Pt on IV Rocephin. PT/OT ordered. Cardiology consulted. SS will continue to follow for discharge planning.
[2021-01-29] MEDS ORDERED: DIGOXIN IV 500 MCG/2 ML AMPUL. IV ONE (16:00)
[2021-01-29] MEDS: LIDOCAINE (700MG/PATCH) PATCH. TD SCH (18:18)
--- NOTE | 2021-01-29 20:05 | CONS ---
DATE OF CONSULTATION: 01/29/2021 ATTENDING PHYSICIAN: Dr. Narayan. REASON FOR CONSULTATION: The patient was seen at the request of Dr. Narayan for rehab evaluation. HISTORY OF PRESENT ILLNESS: This is 89-year-old right-handed female admitted through the Emergency Room on 01/29/2021 with rib cage and back pain, inability to ambulate, new onset atrial fibrillation in the Emergency Room. The patient admits pain over the left breast area. The patient is blind. She lives with her roommate. She usually walks holding onto objects and furniture. She does not use a cane or a walker. She denies any recent fall, but apparently had been seen for fractured right wrist for which she had surgery done and had cast immobilization. Right now, she had wrist cock-up splint in place. The patient had x-rays and CT scan of the chest which revealed T7 and T12 vertebral body compression fracture. The patient does not go outside the house. She did not have COVID vaccine. The patient with known hypertension, osteoarthritis, chronic renal insufficiency, family history of hypertension. PHYSICAL EXAMINATION: Today revealed an elderly female. She is alert, oriented to time, place and person, follows commands appropriately. Moves all 4 extremities voluntarily where she had 4/5 to 4+/5 grade muscle strength with relatively increased weakness in right hand intrinsic muscles. She had some flexion deformity of her right wrist and right hand fingers. She had 1-2+ deep tendon reflexes with absent ankle jerks. She had crepitus on range of motion of her knee joint with knee joint effusion, right side more than left side with pain on range of motion of her knee joints. She had pain free range of motion of both hip joints. She had some pain on range of motion of her right wrist. The patient had minimal tenderness to palpation over right mid thoracic paraspinal muscles. No significant tenderness to palpation over thoracic spine itself. The patient requires minimal assistance with bed mobility and transfers. Once up, she walked with handheld assistance at bedside on level surface without any difficulty, but with somewhat wide-based gait. 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 RECOMMENDATIONS: Agree with the plan for physical therapy and occupational therapy to get her up as tolerated. Hopefully, home with home health followup when medically stable. If she is having significant back pain, to consider asking Interventional Radiology for consideration of kyphoplasty and also to consider injecting painful knee joints to obtain followup x-rays of her right wrist. Dr. Narayan, I appreciate asking me to participate in the care of this interesting patient. I will be glad to see her for followup with you on as needed basis. KELSEY DR: Ramírez TID: [id number]
[2021-01-29] MEDS: DICLOFENAC SODIUM 1% TOPICAL GEL 100GM TUBE. TP SCH (21:13)
[2021-01-30] VITALS (7 sets, daily range): BP systolic 105–121; BP diastolic 55–77
[2021-01-30 07:33] LABS: CALCIUM 8.7 mg/dL (8.5-10.1); CREATININE 0.8 mg/dL (0.6-1.0); GFR 67.7; POTASSIUM 3.7 mmol/L (3.5-5.1)
[2021-01-30] MEDS: DICLOFENAC SODIUM 1% TOPICAL GEL 100GM TUBE. TP SCH ×2 (09:00→21:37)
--- NOTE | 2021-01-30 09:05 | PDOC ---
PROGRESS NOTES Date of Service: DATE: 01/30/21 TIME: 09:05 Chief Complaint Chief Complaint VTE Prophylaxis Ordered VTE Prophylaxis Devices: No VTE Pharmacological Prophylaxi: Yes Assessment/Plan Assessment/Plan IMPRESSION: Acute generalized pain rib cage pain. / her left breast area Inability to ambulate Compression deformities at T7 and T11. with focal tenderness, TACHYCARDIA likely associated with acute pain/ Afib RVR Legal blindness PLAN ADMIT Consult DR MCGUIRE Consult cardiology Cardizem drip started in ER PT/OT ECHO Rehab consult SNU eval Orthostatic BP/ PULSE MCOT TTE and TSH. DVT PROPHYLAXIS consider asking Interventional Radiology for consideration of kyphoplasty D/W ER Justifications for Admission Justifications for Admission Other Justification ELADIO BELL MD Jan 29, 2021 09:48 History of Present Illness History of Present Illness Identification/Chief Complaint Chief Complaint back and rib pain, inability to ambulate, new onset a fib in ER , A FIB RVR rib cage pain. / around her left breast area History of Present Illness History of Present Illness 89 yo blind F presented to the ED brought in by EMS stating "My ribs hurt all over, I am just old." she "has a knot" in her left breast. Reports limited mobility roommate called 911 because of this. / her left kidney hurts. States if she does get of bed she crawls. Denies any fall, head injury or trauma. / No midline back pain over thoracic [id number] ct c/w T7 and T12 compression fractures TROPONIN I NEG X 3 Admitted with chest wall pain, tachycardia, inability for self care, patient is legally blind, noted to be hypotensive, iv fluids ordered, probable UTI , Noted to be in afib with RVR , new onset TACHYCARDIA likely associated with acute pain/ Afib RVR iv CARDIZEM DRIP STARTED IN ER Past Medical History Past Medical History Past Medical History Past Surgical History: Other Additional Past Surgical Histo: unknown Smoking Status: Never Smoker Alcohol Use: None FHX HTN Cardiovascular: HTN Hepatobiliary: No pertinent hx Musculoskeletal: low back pain, Osteoarthritis Renal/: No pertinent hx, Chronic renal insuff Dermatology: No pertinent hx Family History Family History: Hypertension Social History Smoke: No ALCOHOL: none Drugs: None Current Problem List Problem List Problems Medical Problems: (1) Generalized pain Status: Acute (2) Thoracic compression fracture Status: Acute Current Medications Current Medications Current Medications Fosfomycin Tromethamine (Monurol) 3 gm 1X ONCE PO Last administered on 01/28/21at 17:05; Start 01/28/21 at 16:45; Stop 01/28/21 at 16:46; Status DC Ondansetron HCl (Zofran) 4 mg PRN Q8HRS PRN IVP NAUSEA/VOMITING; Start 01/28/21 at 20:00; Stop 01/29/21 at 19:59 Sodium Chloride 1,000 ml @ 75 mls/hr [id number] IV Last administered on 01/28/21at 20:00; Start 01/28/21 at 20:00; Stop 01/29/21 at 19:59 Diltiazem HCl (Cardizem Iv Push) 10 mg 1X ONCE IVP Last administered on 01/28/21at 21:00; Start 01/28/21 at 21:00; Stop 01/28/21 at 21:01; Status DC Diltiazem HCl 125 mg/Sodium Chloride 125 ml @ 5 mls/hr 1X ONCE IV Last administered on 01/28/21at 20:59; Start 01/28/21 at 21:00; Stop 01/29/21 at 21:59 Active Scripts Active Reported No Known Medications Prior To Admisstion (Info) Each 1 Each DAILY Allergies Allergies: Coded Allergies: No Known Drug Allergies (Unverified , 01/13/21) ROS Review of System 14 PT ROS OTHERWISE NEG General: YES: Fatigue; No: Chills, Night Sweats, Malaise, Appetite, Other PSYCHOLOGICAL ROS: YES: Anxiety; No: Behavioral Disorder, Concentration difficultie, Decreased libido, Depression, Disorientation, Hallucinations, Hostility, Irritablity, Memory difficulties, Mood Swings, Obsessive thoughts, Physical abuse, Sexual abuse, Sleep disturbances, Suicidal ideation, Other Eyes: Yes Loss of vision HEENT: No: Heacaches, Visual Changes, Hearing change, Nasal congestion, Nasal discharge, Oral lesions, Sinus pain, Sore Throat, Epistaxis, Sneezing, Snoring, Tinnitus, Vertigo, Vocal changes, Other ALLERGY AND IMMUNOLOGY: No: Hives, Insect Bite Sensitivity, Itchy/Watery Eyes, Nasal Congestion, Post Nasal Drip, Seasonal Allergies, Other Hematological and Lymphatic: No: Bleeding Problems, Blood Clots, Blood Transfusions, Brusing, Night Sweats, Pallor, Swollen Lymph Nodes, Other ENDOCRINE: No: Breast Changes, Galactorrhea, Hair Pattern Changes, Hot Flashes, Malaise/lethargy, Mood Swings, Palpitations, Polydipsia/polyuria, Skin Changes, Temperature Intolerance, Unexpected Weight Changes, Other Breast: No New/Changing Breast Lumps, No Nipple changes, No Nipple discharge, No Other Respiratory: No: Cough, Hemoptysis, Orthopnea, Pleuritic Pain, Shortness of breath, SOB with excertion, Sputum Changes, Stridor, Tachypnea, Wheezing, Other Cardiovascular: No Chest Pain, No Palpitations, No Orthopnea, No Paroxysmal Noc. Dyspnea, No Edema, No Lt Headedness, No Other Gastrointestinal: No Nausea, No Vomiting, No Abdominal Pain, No Diarrhea, No Constipation, No Melena, No Hematochezia, No Other Genitourinary: No Dysuria, No Frequency, No Incontinence, No Hematuria, No Retention, No Discharge, No Urgency, No Pain, No Flank Pain, No Other, No , No , No , No , No , No , No Musculoskeletal: Yes Gait Disturbance, Yes Joint Stiffness, Yes Muscular Weakness Neurological: Yes Gait Disturbance; No Behavorial Changes, No Bowel/Bladder ControlChng, No Confusion, No Dizziness, No Headaches, No Impaired Coord/balance, No Memory Loss, No Numbness/Tingling, No Seizures, No Speech Problems, No Tremors, No Visual Changes, No Weakness, No Other Skin: Yes Dry Skin; No Eczema, No Hair Changes, No Lumps, No Mole Changes, No Mottling, No Nail Changes, No Pruritus, No Rash, No Skin Lesion Changes, No Other, No Acne Acute generalized pain rib cage pain. / her left breast area Inability to ambulate Compression deformities at T7 and T11. with focal tenderness, TACHYCARDIA likely associated with acute pain/ Afib RVR Legal blindness PLAN 9-16 Acute generalized pain rib cage pain. / her left breast area Inability to ambulate Compression deformities at T7 and T11. with focal tenderness, TACHYCARDIA likely associated with acute pain/ Afib RVR Legal blindness NEEDS SNF, [employer] Consult DR MCGUIRE Consult cardiology Marian coates started in ER PT/OT ECHO Rehab consult SNU eval Orthostatic BP/ PULSE MCOT TTE and TSH. DVT PROPHYLAXIS consider asking Interventional Radiology for consideration of kyphoplasty D/W RN AND CASE MGT Vitals Vitals Vital Signs Date Time Temp Pulse Resp B/P (MAP) Pulse Ox O2 Delivery O2 Flow Rate FiO2 01/30/21 07:55 98.2 99 18 112/77 (89) 97 Room Air 98.2 Physical Exam General: Alert, Oriented X3, Cooperative, No acute distress Heart: Regular rate (WAP), Normal S1, Normal S2, Other (2/6 ssytolic murmur to LLS border) Lungs: Clear Abdomen: Normal bowel sounds, Soft, No tenderness Extremities: No clubbing, No cyanosis, No edema Skin: No significant lesion Labs LABS CT THORAX WO INDICATION: left rib pain COMPARISON STUDY: None. TECHNIQUE: Unenhanced axial images were obtained through the lungs and upper abdomen. Coronal and sagittal multiplanar reconstructions were also obtained. PQRS compliance statement: One or more of the following individualized dose reduction techniques were utilized for this examination: 1. Automated exposure control 2. Adjustment of the mA and/or kV according to patient size 3. Use of iterative reconstruction technique FINDINGS: Lungs and Airways: No pulmonary mass or consolidation. Calcified pulmonary granulomas. Normal central airways. Pleura: The pleural spaces are normal. Heart and Mediastinum: Subcentimeter left thyroid nodule. No axillary or supraclavicular lymphadenopathy. No mediastinal, hilar or retrocrural lymphadenopathy. Calcified mediastinal and hilar lymph nodes consistent with remote granulomatous disease. Normal cardiac size. Coronary artery atherosclerotic disease. Atherosclerosis of the thoracic aorta and branch vessels. Abdomen: Cholecystectomy. Bones and Soft Tissues: T7 and T11 compression deformities, with no osseous retropulsion. Old rib fractures. IMPRESSION: 1. Compression deformities at T7 and T11. Correlate for focal tenderness, and consider MRI if there is concern for acute compression fracture. 2. No pulmonary mass or consolidation. Electronically signed by: Medrado Valdes MD (01/28/2021 4:01 PM) [facility] DICTATED and SIGNED BY: MEDARDO VALDES MD DATE: 01/28/21 [id number] 0 Laboratory Tests Test 01/30/21 06:35 Sodium Level 142 mmol/L (136-145) Potassium Level 3.7 mmol/L (3.5-5.1) Chloride Level 106 mmol/L (98-107) Carbon Dioxide Level 27 mmol/L (21-32) Anion Gap 9 (6-14) Blood Urea Nitrogen 9 mg/dL (7-20) Creatinine 0.8 mg/dL (0.6-1.0) Estimated GFR (Cockcroft-Gault) 67.7 Glucose Level 102 mg/dL (70-99) Calcium Level 8.7 mg/dL (8.5-10.1) Magnesium Level 2.0 mg/dL (1.8-2.4) Assessment and Plan Assessmemt and Plan Problems Medical Problems: (1) Generalized pain Status: Acute (2) Thoracic compression fracture Status: Acute Comment Review of Relevant I have reviewed the following items hillary (where applicable) has been applied. Labs Laboratory Tests Test 01/28/21 15:34 01/28/21 16:00 01/28/21 20:30 01/28/21 23:00 Urine Collection Type Unknown Urine Color Yellow Urine Clarity Cloudy Urine pH 5.5 (<5.0-8.0) Urine Specific Climax 1.020 (1.000-1.030) Urine Protein 30 mg/dL (NEG-TRACE) Urine Glucose (UA) Negative mg/dL (NEG) Urine Ketones (Stick) Negative mg/dL (NEG) Urine Blood Small (NEG) Urine Nitrite Positive (NEG) Urine Bilirubin Negative (NEG) Urine Urobilinogen Dipstick 1.0 mg/dL (0.2 mg/dL) Urine Leukocyte Esterase Large (NEG) Urine RBC 1-2 /HPF (0-2) Urine WBC Tntc /HPF (0-4) Urine Squamous Epithelial Cells Mod /LPF Urine Bacteria Many /HPF (0-FEW) Urine Opiates Screen Neg (NEG) Urine Methadone Screen Neg (NEG) Urine Barbiturates Neg (NEG) Urine Phencyclidine Screen Neg (NEG) Urine Amphetamine/Methamphetamine Neg (NEG) Urine Benzodiazepines Screen Neg (NEG) Urine Cocaine Screen Neg (NEG) Urine Cannabinoids Screen Neg (NEG) Urine Ethyl Alcohol Neg (NEG) White Blood Count 5.0 x10^3/uL (4.0-11.0) Red Blood Count 4.84 x10^6/uL (3.50-5.40) Hemoglobin 14.4 g/dL (12.0-15.5) Hematocrit 42.9 % (36.0-47.0) Mean Corpuscular Volume 89 fL (79-100) Mean Corpuscular Hemoglobin 30 pg (25-35) Mean Corpuscular Hemoglobin Concent 34 g/dL (31-37) Red Cell Distribution Width 14.5 % (11.5-14.5) Platelet Count 98 x10^3/uL (140-400) Neutrophils (%) (Auto) 64 % (31-73) Lymphocytes (%) (Auto) 18 % (24-48) Monocytes (%) (Auto) 15 % (0-9) Eosinophils (%) (Auto) 2 % (0-3) Basophils (%) (Auto) 1 % (0-3) Neutrophils # (Auto) 3.2 x10^3/uL (1.8-7.7) Lymphocytes # (Auto) 0.9 x10^3/uL (1.0-4.8) Monocytes # (Auto) 0.8 x10^3/uL (0.0-1.1) Eosinophils # (Auto) 0.1 x10^3/uL (0.0-0.7) Basophils # (Auto) 0.0 x10^3/uL (0.0-0.2) Sodium Level 140 mmol/L (136-145) Potassium Level 4.4 mmol/L (3.5-5.1) Chloride Level 105 mmol/L (98-107) Carbon Dioxide Level 30 mmol/L (21-32) Anion Gap 5 (6-14) Blood Urea Nitrogen 12 mg/dL (7-20) Creatinine 1.0 mg/dL (0.6-1.0) Estimated GFR (Cockcroft-Gault) 52.3 BUN/Creatinine Ratio 12 (6-20) Glucose Level 123 mg/dL (70-99) Calcium Level 9.0 mg/dL (8.5-10.1) Magnesium Level 2.0 mg/dL (1.8-2.4) Total Bilirubin 1.0 mg/dL (0.2-1.0) Aspartate Amino Transf (AST/SGOT) 26 U/L (15-37) Alanine Aminotransferase (ALT/SGPT) 27 U/L (14-59) Alkaline Phosphatase 104 U/L (46-116) Troponin I Quantitative < 0.017 ng/mL (0.000-0.055) < 0.017 ng/mL (0.000-0.055) AM-Kve-M-Type Natriuretic Peptide 573 pg/mL (0-449) Total Protein 6.2 g/dL (6.4-8.2) Albumin 3.3 g/dL (3.4-5.0) Albumin/Globulin Ratio 1.1 (1.0-1.7) Lipase 206 U/L (73-393) Coronavirus (COVID-19)(PCR) Negative (NEGATIVE) SARS-CoV-2 RNA (FELICITAS) Invalid (Negative) SARS-CoV-2 Antigen (Rapid) Negative (NEGATIVE) Test 01/29/21 04:00 01/30/21 06:35 Troponin I Quantitative 0.020 ng/mL (0.000-0.055) Thyroid Stimulating Hormone (TSH) 1.654 uIU/mL (0.358-3.74) Sodium Level 142 mmol/L (136-145) Potassium Level 3.7 mmol/L (3.5-5.1) Chloride Level 106 mmol/L (98-107) Carbon Dioxide Level 27 mmol/L (21-32) Anion Gap 9 (6-14) Blood Urea Nitrogen 9 mg/dL (7-20) Creatinine 0.8 mg/dL (0.6-1.0) Estimated GFR (Cockcroft-Gault) 67.7 Glucose Level 102 mg/dL (70-99) Calcium Level 8.7 mg/dL (8.5-10.1) Magnesium Level 2.0 mg/dL (1.8-2.4) Laboratory Tests Test 01/30/21 06:35 Sodium Level 142 mmol/L (136-145) Potassium Level 3.7 mmol/L (3.5-5.1) Chloride Level 106 mmol/L (98-107) Carbon Dioxide Level 27 mmol/L (21-32) Anion Gap 9 (6-14) Blood Urea Nitrogen 9 mg/dL (7-20) Creatinine 0.8 mg/dL (0.6-1.0) Estimated GFR (Cockcroft-Gault) 67.7 Glucose Level 102 mg/dL (70-99) Calcium Level 8.7 mg/dL (8.5-10.1) Magnesium Level 2.0 mg/dL (1.8-2.4) Microbiology 01/28/21 Urine Culture - Preliminary, Resulted Medications Current Medications Fosfomycin Tromethamine (Monurol) 3 gm 1X ONCE PO Last administered on 01/28/21at 17:05; Start 01/28/21 at 16:45; Stop 01/28/21 at 16:46; Status DC Ondansetron HCl (Zofran) 4 mg PRN Q8HRS PRN IVP NAUSEA/VOMITING; Start 01/28/21 at 20:00; Stop 01/29/21 at 19:59; Status DC Sodium Chloride 1,000 ml @ 75 mls/hr [id number] IV Last administered on 01/29/21at 09:20; Start 01/28/21 at 20:00; Stop 01/29/21 at 19:59; Status DC Diltiazem HCl (Cardizem Iv Push) 10 mg 1X ONCE IVP Last administered on 01/28/21at 21:00; Start 01/28/21 at 21:00; Stop 01/28/21 at 21:01; Status DC Diltiazem HCl 125 mg/Sodium Chloride 125 ml @ 5 mls/hr 1X ONCE IV Last administered on 01/28/21at 20:59; Start 01/28/21 at 21:00; Stop 01/29/21 at 21:59; Status DC Ceftriaxone Sodium (Rocephin) 1 gm Q24H IVP Last administered on 01/29/21at 11:52; Start 01/29/21 at 11:00 Sodium Chloride (Normal Saline Flush) 3 ml QSHIFT PRN IV AFTER MEDS AND BLOOD DRAWS; Start 01/29/21 at 13:30 Acetaminophen (Tylenol) 650 mg PRN Q4HRS PRN PO TEMP OVER 100.4F OR MILD PAIN; Start 01/29/21 at 13:30 Al Hydroxide/Mg Hydroxide (Mylanta Plus Xs) 30 ml PRN DAILY PRN PO HEARTBURN / GAS; Start 01/29/21 at 13:30 Docusate Sodium (Colace) 100 mg PRN BID PRN PO HARD STOOLS; Start 01/29/21 at 13:30 Albuterol Sulfate (Ventolin Neb Soln) 2.5 mg PRN Q4HRS PRN NEB SHORTNESS OF BREATH; Start 01/29/21 at 13:30 Guaifenesin (Robitussin) 200 mg PRN Q4HRS PRN PO COUGH; Start 01/29/21 at 13:30 Enoxaparin Sodium (Lovenox 30mg Syringe) 30 mg Q24H SQ ; Start 01/29/21 at 14:00 Digoxin (Lanoxin) 250 mcg 1X ONCE IV Last administered on 01/29/21at 16:12; Start 01/29/21 at 16:00; Stop 01/29/21 at 16:03; Status DC Diclofenac Sodium (Voltaren) 1 nazario BID TP Last administered on 01/29/21at 21:13; Start 01/29/21 at 21:00 Lidocaine (Lidoderm) 1 patch DAILY TD Last administered on 01/29/21at 18:18; Start 01/29/21 at 17:30 Diltiazem HCl (Cardizem 24hr Cd) 120 mg 1X ONCE PO Last administered on 01/29/21at 21:13; Start 01/29/21 at 19:45; Stop 01/29/21 at 19:48; Status DC Lactobacillus Rhamnosus (Culturelle) 1 cap BID PO ; Start 01/30/21 at 09:00 Active Scripts Active Reported No Known Medications Prior To Admisstion (Info) Each 1 Each DAILY Vitals/I & O Vital Sign - Last 24 Hours 01/29/21 01/29/21 01/29/21 01/29/21 11:00 15:00 16:12 18:20 Temp 98.5 98.6 98.5 98.6 Pulse 84 92 98 Resp 16 16 B/P (MAP) 101/55 (70) 127/60 (82) 127/60 160/96 (117) Pulse Ox 95 97 O2 Delivery Room Air Room Air 01/29/21 01/29/21 01/29/21 01/29/21 18:25 18:30 19:15 20:01 Pulse 172 94 B/P (MAP) 147/87 (107) 122/65 (84) 151/86 (107) 146/68 (94) 01/29/21 01/29/21 01/29/21 01/29/21 20:22 21:13 21:13 23:12 Pulse 94 87 87 B/P (MAP) 146/68 123/63 (83) 123/63 (83) O2 Delivery Room Air 01/30/21 01/30/21 01/30/21 00:07 03:00 07:55 Temp 97.7 98.2 97.7 98.2 Pulse 91 87 99 Resp 18 18 B/P (MAP) 119/60 (79) 116/70 (85) 112/77 (89) Pulse Ox 98 97 O2 Delivery Room Air Room Air Intake and Output 01/29/21 01/29/21 01/30/21 15:00 23:00 07:00 Intake Total 307 ml 125 ml 0 ml Output Total 200 ml 300 ml 200 ml Balance 107 ml -175 ml -200 ml Justicifation of Admission Dx: Justifications for Admission: Justification of Admission Dx: Yes Fracture: Fracture ELADIO BELL MD Jan 30, 2021 09:05
[2021-01-30] MEDS: LIDOCAINE (700MG/PATCH) PATCH. TD SCH (09:09)
--- NOTE | 2021-01-30 09:34 | PDOC ---
PROGRESS NOTES Date of Service DATE: 01/30/21 TIME: 09:28 Subjective Subjective She c/o right knee and left side rib cage area pain. 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 Best,who did open reduction and internal fixation with plate and screws to her right distal radius fracture on 01/13/2021. Assessment Assessment Problems Medical Problems: (1) Generalized pain Status: Acute (2) Thoracic compression fracture Status: Acute Plan Plan of Care To obtain knee x-rays and to consider injecting her knees if knee joint pain is interfering with her walking. If back pain persists,she needs MRI scan of thoracic vertebrae to determine the age of compression fractures. Comment Review of Relevant I have reviewed the following items hillary (where applicable) has been applied. Labs Laboratory Tests Test 01/28/21 15:34 01/28/21 16:00 01/28/21 20:30 01/28/21 23:00 Urine Collection Type Unknown Urine Color Yellow Urine Clarity Cloudy Urine pH 5.5 (<5.0-8.0) Urine Specific [place] 1.020 (1.000-1.030) Urine Protein 30 mg/dL (NEG-TRACE) Urine Glucose (UA) Negative mg/dL (NEG) Urine Ketones (Stick) Negative mg/dL (NEG) Urine Blood Small (NEG) Urine Nitrite Positive (NEG) Urine Bilirubin Negative (NEG) Urine Urobilinogen Dipstick 1.0 mg/dL (0.2 mg/dL) Urine Leukocyte Esterase Large (NEG) Urine RBC 1-2 /HPF (0-2) Urine WBC Tntc /HPF (0-4) Urine Squamous Epithelial Cells Mod /LPF Urine Bacteria Many /HPF (0-FEW) Urine Opiates Screen Neg (NEG) Urine Methadone Screen Neg (NEG) Urine Barbiturates Neg (NEG) Urine Phencyclidine Screen Neg (NEG) Urine Amphetamine/Methamphetamine Neg (NEG) Urine Benzodiazepines Screen Neg (NEG) Urine Cocaine Screen Neg (NEG) Urine Cannabinoids Screen Neg (NEG) Urine Ethyl Alcohol Neg (NEG) White Blood Count 5.0 x10^3/uL (4.0-11.0) Red Blood Count 4.84 x10^6/uL (3.50-5.40) Hemoglobin 14.4 g/dL (12.0-15.5) Hematocrit 42.9 % (36.0-47.0) Mean Corpuscular Volume 89 fL (79-100) Mean Corpuscular Hemoglobin 30 pg (25-35) Mean Corpuscular Hemoglobin Concent 34 g/dL (31-37) Red Cell Distribution Width 14.5 % (11.5-14.5) Platelet Count 98 x10^3/uL (140-400) Neutrophils (%) (Auto) 64 % (31-73) Lymphocytes (%) (Auto) 18 % (24-48) Monocytes (%) (Auto) 15 % (0-9) Eosinophils (%) (Auto) 2 % (0-3) Basophils (%) (Auto) 1 % (0-3) Neutrophils # (Auto) 3.2 x10^3/uL (1.8-7.7) Lymphocytes # (Auto) 0.9 x10^3/uL (1.0-4.8) Monocytes # (Auto) 0.8 x10^3/uL (0.0-1.1) Eosinophils # (Auto) 0.1 x10^3/uL (0.0-0.7) Basophils # (Auto) 0.0 x10^3/uL (0.0-0.2) Sodium Level 140 mmol/L (136-145) Potassium Level 4.4 mmol/L (3.5-5.1) Chloride Level 105 mmol/L (98-107) Carbon Dioxide Level 30 mmol/L (21-32) Anion Gap 5 (6-14) Blood Urea Nitrogen 12 mg/dL (7-20) Creatinine 1.0 mg/dL (0.6-1.0) Estimated GFR (Cockcroft-Gault) 52.3 BUN/Creatinine Ratio 12 (6-20) Glucose Level 123 mg/dL (70-99) Calcium Level 9.0 mg/dL (8.5-10.1) Magnesium Level 2.0 mg/dL (1.8-2.4) Total Bilirubin 1.0 mg/dL (0.2-1.0) Aspartate Amino Transf (AST/SGOT) 26 U/L (15-37) Alanine Aminotransferase (ALT/SGPT) 27 U/L (14-59) Alkaline Phosphatase 104 U/L (46-116) Troponin I Quantitative < 0.017 ng/mL (0.000-0.055) < 0.017 ng/mL (0.000-0.055) DL-Ust-Y-Type Natriuretic Peptide 573 pg/mL (0-449) Total Protein 6.2 g/dL (6.4-8.2) Albumin 3.3 g/dL (3.4-5.0) Albumin/Globulin Ratio 1.1 (1.0-1.7) Lipase 206 U/L (73-393) Coronavirus (COVID-19)(PCR) Negative (NEGATIVE) SARS-CoV-2 RNA (FELICITAS) Invalid (Negative) SARS-CoV-2 Antigen (Rapid) Negative (NEGATIVE) Test 01/29/21 04:00 01/30/21 06:35 Troponin I Quantitative 0.020 ng/mL (0.000-0.055) Thyroid Stimulating Hormone (TSH) 1.654 uIU/mL (0.358-3.74) Sodium Level 142 mmol/L (136-145) Potassium Level 3.7 mmol/L (3.5-5.1) Chloride Level 106 mmol/L (98-107) Carbon Dioxide Level 27 mmol/L (21-32) Anion Gap 9 (6-14) Blood Urea Nitrogen 9 mg/dL (7-20) Creatinine 0.8 mg/dL (0.6-1.0) Estimated GFR (Cockcroft-Gault) 67.7 Glucose Level 102 mg/dL (70-99) Calcium Level 8.7 mg/dL (8.5-10.1) Magnesium Level 2.0 mg/dL (1.8-2.4) Laboratory Tests Test 01/30/21 06:35 Sodium Level 142 mmol/L (136-145) Potassium Level 3.7 mmol/L (3.5-5.1) Chloride Level 106 mmol/L (98-107) Carbon Dioxide Level 27 mmol/L (21-32) Anion Gap 9 (6-14) Blood Urea Nitrogen 9 mg/dL (7-20) Creatinine 0.8 mg/dL (0.6-1.0) Estimated GFR (Cockcroft-Gault) 67.7 Glucose Level 102 mg/dL (70-99) Calcium Level 8.7 mg/dL (8.5-10.1) Magnesium Level 2.0 mg/dL (1.8-2.4) Microbiology 01/28/21 Urine Culture - Preliminary, Resulted Medications Current Medications Fosfomycin Tromethamine (Monurol) 3 gm 1X ONCE PO Last administered on 01/28/21at 17:05; Start 01/28/21 at 16:45; Stop 01/28/21 at 16:46; Status DC Ondansetron HCl (Zofran) 4 mg PRN Q8HRS PRN IVP NAUSEA/VOMITING; Start 01/28/21 at 20:00; Stop 01/29/21 at 19:59; Status DC Sodium Chloride 1,000 ml @ 75 mls/hr [id number] IV Last administered on 01/29/21at 09:20; Start 01/28/21 at 20:00; Stop 01/29/21 at 19:59; Status DC Diltiazem HCl (Cardizem Iv Push) 10 mg 1X ONCE IVP Last administered on 01/28/21at 21:00; Start 01/28/21 at 21:00; Stop 01/28/21 at 21:01; Status DC Diltiazem HCl 125 mg/Sodium Chloride 125 ml @ 5 mls/hr 1X ONCE IV Last administered on 01/28/21at 20:59; Start 01/28/21 at 21:00; Stop 01/29/21 at 21:59; Status DC Ceftriaxone Sodium (Rocephin) 1 gm Q24H IVP Last administered on 01/29/21at 11:52; Start 01/29/21 at 11:00 Sodium Chloride (Normal Saline Flush) 3 ml QSHIFT PRN IV AFTER MEDS AND BLOOD DRAWS; Start 01/29/21 at 13:30 Acetaminophen (Tylenol) 650 mg PRN Q4HRS PRN PO TEMP OVER 100.4F OR MILD PAIN; Start 01/29/21 at 13:30 Al Hydroxide/Mg Hydroxide (Mylanta Plus Xs) 30 ml PRN DAILY PRN PO HEARTBURN / GAS; Start 01/29/21 at 13:30 Docusate Sodium (Colace) 100 mg PRN BID PRN PO HARD STOOLS; Start 01/29/21 at 13:30 Albuterol Sulfate (Ventolin Neb Soln) 2.5 mg PRN Q4HRS PRN NEB SHORTNESS OF BREATH; Start 01/29/21 at 13:30 Guaifenesin (Robitussin) 200 mg PRN Q4HRS PRN PO COUGH; Start 01/29/21 at 13:30 Enoxaparin Sodium (Lovenox 30mg Syringe) 30 mg Q24H SQ ; Start 01/29/21 at 14:00 Digoxin (Lanoxin) 250 mcg 1X ONCE IV Last administered on 01/29/21at 16:12; Start 01/29/21 at 16:00; Stop 01/29/21 at 16:03; Status DC Diclofenac Sodium (Voltaren) 1 nazario BID TP Last administered on 01/30/21at 09:00; Start 01/29/21 at 21:00 Lidocaine (Lidoderm) 1 patch DAILY TD Last administered on 01/30/21at 09:09; Start 01/29/21 at 17:30 Diltiazem HCl (Cardizem 24hr Cd) 120 mg 1X ONCE PO Last administered on 01/29/21at 21:13; Start 01/29/21 at 19:45; Stop 01/29/21 at 19:48; Status DC Lactobacillus Rhamnosus (Culturelle) 1 cap BID PO ; Start 01/30/21 at 09:00 Active Scripts Active Reported No Known Medications Prior To Admisstion (Info) Each 1 Each DAILY Vitals/I & O Vital Sign - Last 24 Hours 01/29/21 01/29/21 01/29/21 01/29/21 11:00 15:00 16:12 18:20 Temp 98.5 98.6 98.5 98.6 Pulse 84 92 98 Resp 16 16 B/P (MAP) 101/55 (70) 127/60 (82) 127/60 160/96 (117) Pulse Ox 95 97 O2 Delivery Room Air Room Air 01/29/21 01/29/21 01/29/21 01/29/21 18:25 18:30 19:15 20:01 Pulse 172 94 B/P (MAP) 147/87 (107) 122/65 (84) 151/86 (107) 146/68 (94) 01/29/21 01/29/21 01/29/21 01/29/21 20:22 21:13 21:13 23:12 Pulse 94 87 87 B/P (MAP) 146/68 123/63 (83) 123/63 (83) O2 Delivery Room Air 01/30/21 01/30/21 01/30/21 00:07 03:00 07:55 Temp 97.7 98.2 97.7 98.2 Pulse 91 87 99 Resp 18 18 B/P (MAP) 119/60 (79) 116/70 (85) 112/77 (89) Pulse Ox 98 97 O2 Delivery Room Air Room Air Intake and Output 01/29/21 01/29/21 01/30/21 15:00 23:00 07:00 Intake Total 307 ml 125 ml 0 ml Output Total 200 ml 300 ml 200 ml Balance 107 ml -175 ml -200 ml Justifications for Admission Other Justification A FIB RVR, GAIT INSTABILITY KAVIN MCGUIRE MD Jan 30, 2021 09:34
[2021-01-30] MEDS ORDERED: BUPIVACAINE MPF 0.25% 10 ML VIAL. IJ ONE (10:00)
[2021-01-30] MEDS ORDERED: methylPREDNISolone ACETATE 80 MG/ML VIAL. INJ ONE (10:00)
[2021-01-30] MEDS: cefTRIAXone IV Push 1 GM VIAL. IVP SCH ×2 (10:04→11:00)
[2021-01-30] MEDS: LACTOBACILLUS RHAMNOSUS GG 1 CAPSULE. PO SCH ×2 (10:04→21:37)
--- NOTE | 2021-01-30 11:21 | PDOC ---
KHUSHBOO LIM PIPE CHANGER 01/30/21 1120: CARDIO Progress Notes Date and Time Date of Service 01/30/2021 Time of Evaluation 1100 Subjective Subjective: No Chest Pain, No shortness of breath, No Palpitations Vitals Vitals Vital Signs Date Time Temp Pulse Resp B/P (MAP) Pulse Ox O2 Delivery O2 Flow Rate FiO2 01/30/21 07:55 98.2 99 18 112/77 (89) 97 Room Air 98.2 Weight Weight [ ] Input and Output Intake and Output Intake and Output 01/30/21 07:00 Intake Total 432 ml Output Total 700 ml Balance -268 ml Intake Oral 250 ml IV Total 182 ml Output Urine Total 700 ml # Voids 1 Laboratory Labs Laboratory Tests Test 01/30/21 06:35 Sodium Level 142 mmol/L (136-145) Potassium Level 3.7 mmol/L (3.5-5.1) Chloride Level 106 mmol/L (98-107) Carbon Dioxide Level 27 mmol/L (21-32) Anion Gap 9 (6-14) Blood Urea Nitrogen 9 mg/dL (7-20) Creatinine 0.8 mg/dL (0.6-1.0) Estimated GFR (Cockcroft-Gault) 67.7 Glucose Level 102 mg/dL (70-99) Calcium Level 8.7 mg/dL (8.5-10.1) Magnesium Level 2.0 mg/dL (1.8-2.4) Microbiology Micro Microbiology 01/28/21 Urine Culture - Preliminary, Resulted Physical Exam HEENT: Neck Supple W Full Motion Chest: Symmetric LUNGS: Clear to Auscultation Heart: RRR (WAP) Extremities: No Edema, No Calf Tenderness, Other (right wrist brace) Neurology: alert, oriented, follow commands Assessment Assessment 1. Atypical Chest pain: likely due to T7 and 11 compression fractures more likely sustained from prior fall 2. S/P ORIF right wrist recent due to fall 3. Syncope with traumatic fall: occurred over a month ago leading to wrist fracture. + orthostasis 4. 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 Arrhythmia: PSVT. Also WAP/MAT. Maintaining SR 80s 6. UTI: per PCP Recommendations 1. Rehab consult 2. SNU eval 3. Start on low dose toprol. SBP 140s OK 4. MCOT Justicifation of Admission Dx: Justifications for Admission: Justification of Admission Dx: Yes GUERDA CUELLAR MD 01/30/21 1715: CARDIO Progress Notes Assessment Assessment Patient seen and examined. Agree with ROCK LOADER's assessment and plan. Chest pain with atypical features and most probably musculoskeletal. Telemetry with episodes of atrial tachycardia noted. Presently maintaining sinus rhythm. 2D echo showed LVEF 50 to 55%. Plan for outpatient event monitor recording KHUSHBOO LIM APRN Jan 30, 2021 11:20 GUERDA CUELLAR MD Jan 30, 2021 17:15
--- NOTE | 2021-01-30 11:28 | CARD ---
MR#: [id number] Date of Study: 01/30/2021 Ordering Physician: KHUSHBOO LIM, Referring Physician: KHUSHBOO LIM, Tech: Elena Guzman, [facility] APPROVED REPORT EXAM: Two-dimensional and M-mode echocardiogram with Doppler and color Doppler. Other Information Quality : AverageHR: 85bpm Technically limited study due to body habitus. INDICATION Arrhythmia Syncope RISK FACTORS Hypertension 2D DIMENSIONS Left Atrium(2D)2.7 (1.6-4.0cm)IVSd0.9 (0.7-1.1cm) Aortic Root(2D)2.9 (2.0-3.7cm)LVDd4.2 (3.9-5.9cm) LVOT Diameter1.9 (1.8-2.4cm)PWd0.9 (0.7-1.1cm) LVDs3.3 (2.5-4.0cm)FS (%) 22.1 % SV35.8 mlLVEF(%)45.0 (>50%) Aortic Valve AoV Peak Lemuel.205.9cm/sAoV VTI41.7cm AO Peak GR.17.0mmHgLVOT VTI 21.40cm AO Mean GR.10mmHg Mitral Valve MV E Fipcuixj03.2cm/sMV E Peak Gr.8mmHg MV DECEL [id number] A Tlsgbegv031.1cm/s MV E Mean Gr.3mmHgE/A Ratio0.7 TDI Lateral E' P. V8.62cm/sMedial E' P. V7.21cm/s E/Lateral E'11.4E/Medial E'13.6 Tricuspid Valve TR P. [id number]/sRAP [id number] TR Peak Gr.03bjNgTBEB59tdDy Pulmonary Vein S1 Pdecjxcw02.4cm/sS2 Crxypsai59.36cm/s D2 Sbzbvyxz74.4cm/s LEFT VENTRICLE The left ventricle is normal size. There is normal left ventricular wall thickness. The left ventricu lar systolic function is normal and the ejection fraction is within normal range. The Ejection Fracti on is 50-55%. Septal motion suggestive of conduction defect. Otherwise, grossly normal wall motion. T ransmitral Doppler flow pattern is Grade I-abnormal relaxation pattern. RIGHT VENTRICLE The right ventricle is normal size. There is normal right ventricular wall thickness. The right ventr icular systolic function is normal. ATRIA The left atrium size is normal. The right atrium size is normal. The interatrial septum is intact wit h no evidence for an atrial septal defect or patent foramen ovale as noted on 2-D or Doppler imaging. AORTIC VALVE The aortic valve is calcified with restricted leaflet motion. Doppler and Color Flow revealed trace a ortic regurgitation. There is no significant aortic valvular stenosis based on doppler criteria. Calc ulated aortic valve area is 2.34 cm2 with maximum pressure gradient of 17 mmHg and mean pressure grad ient of 9 mmHg. MITRAL VALVE The mitral valve is mildly thickened. There is no evidence of mitral valve prolapse. There is no mitr al valve stenosis with a mean gradient of 3.35 mmHg. TRICUSPID VALVE The tricuspid valve is normal in structure and function. Doppler and Color Flow revealed trace tricus pid regurgitation with an estimated PAP of 44 mmHg. There is no tricuspid valve stenosis. PULMONIC VALVE The pulmonic valve is not well visualized. Doppler and Color Flow revealed no pulmonic valvular regur gitation. There is no pulmonic valvular stenosis. GREAT VESSELS The aortic root is normal in size. The IVC is normal in size and collapses >50% with inspiration. PERICARDIAL EFFUSION There is no evidence of significant pericardial effusion. Critical Notification Critical Value: No <Conclusion> The left ventricular systolic function is normal and the ejection fraction is within normal range. Th e Ejection Fraction is 50-55%. Septal motion suggestive of conduction defect. Otherwise, grossly normal wall motion. The aortic valve is calcified with restricted leaflet motion. There is no significant aortic valvular stenosis based on doppler criteria. Calculated aortic valve a bandar is 2.34 cm2 with maximum pressure gradient of 17 mmHg and mean pressure gradient of 9 mmHg. Signed by : Jose G Horne, Electronically Approved : 01/30/2021 11:28:10
--- NOTE | 2021-01-30 12:01 | NUR ---
SS following up with discharge planning. SS reviewed pt chart and discussed with pt RN. Pt is currently on room air. COVID19 negative. Per RN, pt is blind and hard of hearing. PT/OT ordered. Pt not vaccinated for COVID19. Probable need for usp unit. SS met with pt with RN at bedside and spoke with pt's caregiver, Waylon, via phone. Pt and pt's caregiver currently agreeable to usp unit. [facility], ; fax [phone]. Pt reported that if [facility] cannot accept SS could send referrals to either [facility] in [place] or [facility] and [facility]. SS will continue to follow for discharge planning. Addendum: 01/30/21 at 1424 by HERNANDO MCGARRY SS SS phoned and faxed referrals to [facility] and [facility].
[2021-01-30] MEDS: METOPROLOL SUCC 24HR ER 25 MG TAB.ER.24H. PO SCH (13:49)
[2021-01-30] MEDS: ENOXAPARIN 30 MG/0.3 ML SYRINGE. SQ SCH (13:50)
--- NOTE | 2021-01-30 15:32 | RAD ---
AP standing view of both knees Clinical indications: Painful DJD. Right knee: There is moderate to severe joint space narrowing and mild spurring of the medial tibial femoral joint compartment. There is mild joint space narrowing and spurring of the lateral tibial fem oral joint compartment. Calcified phleboliths of the medial aspect of the right knee are seen. Left knee: There is moderate joint space narrowing and spurring of the medial tibial femoral joint. T here is mild joint space narrowing and spurring of the lateral tibiofemoral joint compartment. 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 Electronically signed by: Ace Tate MD (01/30/2021 3:30 PM) [id number]
--- NOTE | 2021-01-30 19:40 | NUR ---
Pt in bed assessment completed pt denied pain at this time. Pt reminded to call for assistance prior to getting oob, pt bed alarm set call light in reach will resume care and continue to monitor pt.
[2021-01-31 02:50] VITALS: BP 114/57
[2021-01-31 04:46] LABS: BASO # 0.1 x10^3/uL (0.0-0.2); BASO % 1 % (0-3); EOS # 0.1 x10^3/uL (0.0-0.7); EOS % 3 % (0-3); HEMATOCRIT 40.5 % (36.0-47.0); HEMOGLOBIN 13.7 g/dL (12.0-15.5); LYMPH # 1.6 x10^3/uL (1.0-4.8); LYMPH % 30 % (24-48); MEAN CORPUSCULAR HEMOGLOBIN 30 pg (25-35); MEAN CORPUSCULAR HGB CONC 34 g/dL (31-37); MEAN CORPUSCULAR VOLUME 88 fL (79-100); MONO # 0.9 x10^3/uL (0.0-1.1); MONO % 16 % (0-9); NEUT # 2.8 x10^3/uL (1.8-7.7); NEUT % 51 % (31-73); PLATELET COUNT 110 x10^3/uL (140-400); RED BLOOD COUNT 4.61 x10^6/uL (3.50-5.40); RED CELL DISTRIBUTION WIDTH 14.6 % (11.5-14.5); WHITE BLOOD COUNT 5.5 x10^3/uL (4.0-11.0)
[2021-01-31 04:58] LABS: CREATININE 0.9 mg/dL (0.6-1.0); GFR 59.1; POTASSIUM 3.6 mmol/L (3.5-5.1)
[2021-01-31 07:00] VITALS: BP 127/58
--- NOTE | 2021-01-31 07:27 | PDOC ---
PROGRESS NOTES Date of Service: DATE: 01/31/21 TIME: 07:27 Chief Complaint Chief Complaint VTE Prophylaxis Ordered VTE Prophylaxis Devices: No VTE Pharmacological Prophylaxi: Yes Assessment/Plan Assessment/Plan IMPRESSION: Acute generalized pain rib cage pain. / her left breast area Inability to ambulate Compression deformities at T7 and T11. with focal tenderness, TACHYCARDIA likely associated with acute pain/ Afib RVR Legal blindness PLAN ADMIT Consult DR MCGUIRE Consult cardiology Cardizem drip started in ER PT/OT ECHO Rehab consult SNU eval Orthostatic BP/ PULSE MCOT TTE and TSH. DVT PROPHYLAXIS consider asking Interventional Radiology for consideration of kyphoplasty D/W ER Justifications for Admission Justifications for Admission Other Justification ELADIO BELL MD Jan 29, 2021 09:48 History of Present Illness History of Present Illness Identification/Chief Complaint Chief Complaint back and rib pain, inability to ambulate, new onset a fib in ER , A FIB RVR rib cage pain. / around her left breast area History of Present Illness History of Present Illness 89 yo blind F presented to the ED brought in by EMS stating "My ribs hurt all over, I am just old." she "has a knot" in her left breast. Reports limited mobility roommate called 911 because of this. / her left kidney hurts. States if she does get of bed she crawls. Denies any fall, head injury or trauma. / No midline back pain over thoracic [id number] ct c/w T7 and T12 compression fractures TROPONIN I NEG X 3 Admitted with chest wall pain, tachycardia, inability for self care, patient is legally blind, noted to be hypotensive, iv fluids ordered, probable UTI , Noted to be in afib with RVR , new onset TACHYCARDIA likely associated with acute pain/ Afib RVR iv CARDIZEM DRIP STARTED IN ER Past Medical History Past Medical History Past Medical History Past Surgical History: Other Additional Past Surgical Histo: unknown Smoking Status: Never Smoker Alcohol Use: None FHX HTN Cardiovascular: HTN Hepatobiliary: No pertinent hx Musculoskeletal: low back pain, Osteoarthritis Renal/: No pertinent hx, Chronic renal insuff Dermatology: No pertinent hx Family History Family History: Hypertension Social History Smoke: No ALCOHOL: none Drugs: None Current Problem List Problem List Problems Medical Problems: (1) Generalized pain Status: Acute (2) Thoracic compression fracture Status: Acute Current Medications Current Medications Current Medications Fosfomycin Tromethamine (Monurol) 3 gm 1X ONCE PO Last administered on 01/28/21at 17:05; Start 01/28/21 at 16:45; Stop 01/28/21 at 16:46; Status DC Ondansetron HCl (Zofran) 4 mg PRN Q8HRS PRN IVP NAUSEA/VOMITING; Start 01/28/21 at 20:00; Stop 01/29/21 at 19:59 Sodium Chloride 1,000 ml @ 75 mls/hr [id number] IV Last administered on 01/28/21at 20:00; Start 01/28/21 at 20:00; Stop 01/29/21 at 19:59 Diltiazem HCl (Cardizem Iv Push) 10 mg 1X ONCE IVP Last administered on 01/28/21at 21:00; Start 01/28/21 at 21:00; Stop 01/28/21 at 21:01; Status DC Diltiazem HCl 125 mg/Sodium Chloride 125 ml @ 5 mls/hr 1X ONCE IV Last administered on 01/28/21at 20:59; Start 01/28/21 at 21:00; Stop 01/29/21 at 21:59 Active Scripts Active Reported No Known Medications Prior To Admisstion (Info) Each 1 Each DAILY Allergies Allergies: Coded Allergies: No Known Drug Allergies (Unverified , 01/13/21) ROS Review of System 14 PT ROS OTHERWISE NEG General: YES: Fatigue; No: Chills, Night Sweats, Malaise, Appetite, Other PSYCHOLOGICAL ROS: YES: Anxiety; No: Behavioral Disorder, Concentration difficultie, Decreased libido, Depression, Disorientation, Hallucinations, Hostility, Irritablity, Memory difficulties, Mood Swings, Obsessive thoughts, Physical abuse, Sexual abuse, Sleep disturbances, Suicidal ideation, Other Eyes: Yes Loss of vision HEENT: No: Heacaches, Visual Changes, Hearing change, Nasal congestion, Nasal discharge, Oral lesions, Sinus pain, Sore Throat, Epistaxis, Sneezing, Snoring, Tinnitus, Vertigo, Vocal changes, Other ALLERGY AND IMMUNOLOGY: No: Hives, Insect Bite Sensitivity, Itchy/Watery Eyes, Nasal Congestion, Post Nasal Drip, Seasonal Allergies, Other Hematological and Lymphatic: No: Bleeding Problems, Blood Clots, Blood Transfusions, Brusing, Night Sweats, Pallor, Swollen Lymph Nodes, Other ENDOCRINE: No: Breast Changes, Galactorrhea, Hair Pattern Changes, Hot Flashes, Malaise/lethargy, Mood Swings, Palpitations, Polydipsia/polyuria, Skin Changes, Temperature Intolerance, Unexpected Weight Changes, Other Breast: No New/Changing Breast Lumps, No Nipple changes, No Nipple discharge, No Other Respiratory: No: Cough, Hemoptysis, Orthopnea, Pleuritic Pain, Shortness of breath, SOB with excertion, Sputum Changes, Stridor, Tachypnea, Wheezing, Other Cardiovascular: No Chest Pain, No Palpitations, No Orthopnea, No Paroxysmal Noc. Dyspnea, No Edema, No Lt Headedness, No Other Gastrointestinal: No Nausea, No Vomiting, No Abdominal Pain, No Diarrhea, No Constipation, No Melena, No Hematochezia, No Other Genitourinary: No Dysuria, No Frequency, No Incontinence, No Hematuria, No Retention, No Discharge, No Urgency, No Pain, No Flank Pain, No Other, No , No , No , No , No , No , No Musculoskeletal: Yes Gait Disturbance, Yes Joint Stiffness, Yes Muscular Weakness Neurological: Yes Gait Disturbance; No Behavorial Changes, No Bowel/Bladder ControlChng, No Confusion, No Dizziness, No Headaches, No Impaired Coord/balance, No Memory Loss, No Numbness/Tingling, No Seizures, No Speech Problems, No Tremors, No Visual Changes, No Weakness, No Other Skin: Yes Dry Skin; No Eczema, No Hair Changes, No Lumps, No Mole Changes, No Mottling, No Nail Changes, No Pruritus, No Rash, No Skin Lesion Changes, No Other, No Acne Acute generalized pain rib cage pain. / her left breast area Inability to ambulate Compression deformities at T7 and T11. with focal tenderness, TACHYCARDIA likely associated with acute pain/ Afib RVR Legal blindness PLAN 9-16 Acute generalized pain rib cage pain. / her left breast area Inability to ambulate Compression deformities at T7 and T11. with focal tenderness, TACHYCARDIA likely associated with acute pain/ Afib RVR Legal blindness NEEDS SNF, [employer] Consult DR MCGUIRE Consult cardiology Marian coates started in ER PT/OT ECHO Rehab consult SNU eval Orthostatic BP/ PULSE MCOT TTE and TSH. DVT PROPHYLAXIS consider asking Interventional Radiology for consideration of kyphoplasty D/W RN AND CASE MGT 01-31 Acute generalized pain rib cage pain. / her left breast area Inability to ambulate Compression deformities at T7 and T11. with focal tenderness, TACHYCARDIA likely associated with acute pain/ Afib RVR Legal blindness NEEDS SNF, [employer] Consult DR MCGUIRE Consult cardiology Martham drip started in ER PT/OT ECHO Rehab consult SNU eval Orthostatic BP/ PULSE MCOT TTE and TSH. DVT PROPHYLAXIS consider asking Interventional Radiology for consideration of kyphoplasty D/W RN AND CASE MGT D/C TO SNF TODAY [facility] D/C PLANNING 33 MIN Vitals Vitals Vital Signs Date Time Temp Pulse Resp B/P (MAP) Pulse Ox O2 Delivery O2 Flow Rate FiO2 01/31/21 02:50 99.3 82 14 114/57 (76) 94 Room Air 99.3 Physical Exam General: Alert, Oriented X3, Cooperative, No acute distress Heart: Regular rate (WAP), Normal S1, Normal S2, Other (2/6 ssytolic murmur to LLS border) Lungs: Clear Abdomen: Normal bowel sounds, Soft, No tenderness, No hepatosplenomegaly, No masses Extremities: No clubbing, No cyanosis, No edema Skin: No significant lesion Labs LABS Laboratory Tests Test 01/31/21 04:15 White Blood Count 5.5 x10^3/uL (4.0-11.0) Red Blood Count 4.61 x10^6/uL (3.50-5.40) Hemoglobin 13.7 g/dL (12.0-15.5) Hematocrit 40.5 % (36.0-47.0) Mean Corpuscular Volume 88 fL (79-100) Mean Corpuscular Hemoglobin 30 pg (25-35) Mean Corpuscular Hemoglobin Concent 34 g/dL (31-37) Red Cell Distribution Width 14.6 % (11.5-14.5) Platelet Count 110 x10^3/uL (140-400) Neutrophils (%) (Auto) 51 % (31-73) Lymphocytes (%) (Auto) 30 % (24-48) Monocytes (%) (Auto) 16 % (0-9) Eosinophils (%) (Auto) 3 % (0-3) Basophils (%) (Auto) 1 % (0-3) Neutrophils # (Auto) 2.8 x10^3/uL (1.8-7.7) Lymphocytes # (Auto) 1.6 x10^3/uL (1.0-4.8) Monocytes # (Auto) 0.9 x10^3/uL (0.0-1.1) Eosinophils # (Auto) 0.1 x10^3/uL (0.0-0.7) Basophils # (Auto) 0.1 x10^3/uL (0.0-0.2) Sodium Level 141 mmol/L (136-145) Potassium Level 3.6 mmol/L (3.5-5.1) Chloride Level 106 mmol/L (98-107) Carbon Dioxide Level 25 mmol/L (21-32) Anion Gap 10 (6-14) Blood Urea Nitrogen 13 mg/dL (7-20) Creatinine 0.9 mg/dL (0.6-1.0) Estimated GFR (Cockcroft-Gault) 59.1 Glucose Level 101 mg/dL (70-99) Calcium Level 9.0 mg/dL (8.5-10.1) Assessment and Plan Assessmemt and Plan Problems Medical Problems: (1) Generalized pain Status: Acute (2) Thoracic compression fracture Status: Acute Comment Review of Relevant I have reviewed the following items hillary (where applicable) has been applied. Labs Laboratory Tests Test 01/30/21 06:35 01/31/21 04:15 Sodium Level 142 mmol/L (136-145) 141 mmol/L (136-145) Potassium Level 3.7 mmol/L (3.5-5.1) 3.6 mmol/L (3.5-5.1) Chloride Level 106 mmol/L (98-107) 106 mmol/L (98-107) Carbon Dioxide Level 27 mmol/L (21-32) 25 mmol/L (21-32) Anion Gap 9 (6-14) 10 (6-14) Blood Urea Nitrogen 9 mg/dL (7-20) 13 mg/dL (7-20) Creatinine 0.8 mg/dL (0.6-1.0) 0.9 mg/dL (0.6-1.0) Estimated GFR (Cockcroft-Gault) 67.7 59.1 Glucose Level 102 mg/dL (70-99) 101 mg/dL (70-99) Calcium Level 8.7 mg/dL (8.5-10.1) 9.0 mg/dL (8.5-10.1) Magnesium Level 2.0 mg/dL (1.8-2.4) White Blood Count 5.5 x10^3/uL (4.0-11.0) Red Blood Count 4.61 x10^6/uL (3.50-5.40) Hemoglobin 13.7 g/dL (12.0-15.5) Hematocrit 40.5 % (36.0-47.0) Mean Corpuscular Volume 88 fL (79-100) Mean Corpuscular Hemoglobin 30 pg (25-35) Mean Corpuscular Hemoglobin Concent 34 g/dL (31-37) Red Cell Distribution Width 14.6 % (11.5-14.5) Platelet Count 110 x10^3/uL (140-400) Neutrophils (%) (Auto) 51 % (31-73) Lymphocytes (%) (Auto) 30 % (24-48) Monocytes (%) (Auto) 16 % (0-9) Eosinophils (%) (Auto) 3 % (0-3) Basophils (%) (Auto) 1 % (0-3) Neutrophils # (Auto) 2.8 x10^3/uL (1.8-7.7) Lymphocytes # (Auto) 1.6 x10^3/uL (1.0-4.8) Monocytes # (Auto) 0.9 x10^3/uL (0.0-1.1) Eosinophils # (Auto) 0.1 x10^3/uL (0.0-0.7) Basophils # (Auto) 0.1 x10^3/uL (0.0-0.2) Laboratory Tests Test 01/31/21 04:15 White Blood Count 5.5 x10^3/uL (4.0-11.0) Red Blood Count 4.61 x10^6/uL (3.50-5.40) Hemoglobin 13.7 g/dL (12.0-15.5) Hematocrit 40.5 % (36.0-47.0) Mean Corpuscular Volume 88 fL (79-100) Mean Corpuscular Hemoglobin 30 pg (25-35) Mean Corpuscular Hemoglobin Concent 34 g/dL (31-37) Red Cell Distribution Width 14.6 % (11.5-14.5) Platelet Count 110 x10^3/uL (140-400) Neutrophils (%) (Auto) 51 % (31-73) Lymphocytes (%) (Auto) 30 % (24-48) Monocytes (%) (Auto) 16 % (0-9) Eosinophils (%) (Auto) 3 % (0-3) Basophils (%) (Auto) 1 % (0-3) Neutrophils # (Auto) 2.8 x10^3/uL (1.8-7.7) Lymphocytes # (Auto) 1.6 x10^3/uL (1.0-4.8) Monocytes # (Auto) 0.9 x10^3/uL (0.0-1.1) Eosinophils # (Auto) 0.1 x10^3/uL (0.0-0.7) Basophils # (Auto) 0.1 x10^3/uL (0.0-0.2) Sodium Level 141 mmol/L (136-145) Potassium Level 3.6 mmol/L (3.5-5.1) Chloride Level 106 mmol/L (98-107) Carbon Dioxide Level 25 mmol/L (21-32) Anion Gap 10 (6-14) Blood Urea Nitrogen 13 mg/dL (7-20) Creatinine 0.9 mg/dL (0.6-1.0) Estimated GFR (Cockcroft-Gault) 59.1 Glucose Level 101 mg/dL (70-99) Calcium Level 9.0 mg/dL (8.5-10.1) Microbiology 01/28/21 Urine Culture - Preliminary, Resulted Medications Current Medications Fosfomycin Tromethamine (Monurol) 3 gm 1X ONCE PO Last administered on 01/28/21at 17:05; Start 01/28/21 at 16:45; Stop 01/28/21 at 16:46; Status DC Ondansetron HCl (Zofran) 4 mg PRN Q8HRS PRN IVP NAUSEA/VOMITING; Start 01/28/21 at 20:00; Stop 01/29/21 at 19:59; Status DC Sodium Chloride 1,000 ml @ 75 mls/hr [id number] IV Last administered on 01/29/21at 09:20; Start 01/28/21 at 20:00; Stop 01/29/21 at 19:59; Status DC Diltiazem HCl (Cardizem Iv Push) 10 mg 1X ONCE IVP Last administered on 01/28/21at 21:00; Start 01/28/21 at 21:00; Stop 01/28/21 at 21:01; Status DC Diltiazem HCl 125 mg/Sodium Chloride 125 ml @ 5 mls/hr 1X ONCE IV Last administered on 01/28/21at 20:59; Start 01/28/21 at 21:00; Stop 01/29/21 at 21:59; Status DC Ceftriaxone Sodium (Rocephin) 1 gm Q24H IVP Last administered on 01/30/21at 11:00; Start 01/29/21 at 11:00 Sodium Chloride (Normal Saline Flush) 3 ml QSHIFT PRN IV AFTER MEDS AND BLOOD DRAWS; Start 01/29/21 at 13:30 Acetaminophen (Tylenol) 650 mg PRN Q4HRS PRN PO TEMP OVER 100.4F OR MILD PAIN; Start 01/29/21 at 13:30 Al Hydroxide/Mg Hydroxide (Mylanta Plus Xs) 30 ml PRN DAILY PRN PO HEARTBURN / GAS; Start 01/29/21 at 13:30 Docusate Sodium (Colace) 100 mg PRN BID PRN PO HARD STOOLS; Start 01/29/21 at 13:30 Albuterol Sulfate (Ventolin Neb Soln) 2.5 mg PRN Q4HRS PRN NEB SHORTNESS OF BREATH; Start 01/29/21 at 13:30 Guaifenesin (Robitussin) 200 mg PRN Q4HRS PRN PO COUGH; Start 01/29/21 at 13:30 Enoxaparin Sodium (Lovenox 30mg Syringe) 30 mg Q24H SQ Last administered on 01/30/21at 13:50; Start 01/29/21 at 14:00 Digoxin (Lanoxin) 250 mcg 1X ONCE IV Last administered on 01/29/21at 16:12; Start 01/29/21 at 16:00; Stop 01/29/21 at 16:03; Status DC Diclofenac Sodium (Voltaren) 1 nazario BID TP Last administered on 01/30/21at 21:37; Start 01/29/21 at 21:00 Lidocaine (Lidoderm) 1 patch DAILY TD Last administered on 01/30/21at 09:09; Start 01/29/21 at 17:30 Diltiazem HCl (Cardizem 24hr Cd) 120 mg 1X ONCE PO Last administered on 01/29/21at 21:13; Start 01/29/21 at 19:45; Stop 01/29/21 at 19:48; Status DC Lactobacillus Rhamnosus (Culturelle) 1 cap BID PO Last administered on 01/30/21at 21:37; Start 01/30/21 at 09:00 Methylprednisolone Acetate (DEPO-Medrol 80MG VIAL) 40 mg 1X ONCE INJ ; Start 01/30/21 at 10:00; Stop 01/30/21 at 10:01; Status DC Bupivacaine HCl (Sensorcaine-Mpf 0.25%) 10 ml 1X ONCE IJ ; Start 01/30/21 at 10:00; Stop 01/30/21 at 10:01; Status DC Metoprolol Succinate (Toprol Xl) 12.5 mg DAILY PO Last administered on 01/30/21at 13:49; Start 01/30/21 at 12:00 Active Scripts Active Reported No Known Medications Prior To Admisstion (Info) Each 1 Each DAILY Vitals/I & O Vital Sign - Last 24 Hours 01/30/21 01/30/21 01/30/21 01/30/21 07:55 08:00 11:26 13:49 Temp 98.2 98.0 98.2 98.0 Pulse 99 88 88 Resp 18 18 B/P (MAP) 112/77 (89) 105/65 (78) 105/65 Pulse Ox 97 96 O2 Delivery Room Air Room Air Room Air 01/30/21 01/30/21 01/30/21 01/30/21 14:30 19:00 19:40 22:43 Temp 99.2 100.4 99.5 99.2 100.4 99.5 Pulse 90 92 88 Resp 18 20 16 B/P (MAP) 111/55 (73) 118/61 (80) 121/65 (83) Pulse Ox 94 96 93 O2 Delivery Room Air Room Air Room Air Room Air 01/31/21 02:50 Temp 99.3 99.3 Pulse 82 Resp 14 B/P (MAP) 114/57 (76) Pulse Ox 94 O2 Delivery Room Air Intake and Output 01/30/21 01/30/21 01/31/21 15:00 23:00 07:00 Intake Total 480 ml 200 ml 0 ml Output Total 100 ml 300 ml 375 ml Balance 380 ml -100 ml -375 ml Justicifation of Admission Dx: Justifications for Admission: Justification of Admission Dx: Yes Fracture: Fracture ELADIO BELL MD Jan 31, 2021 07:27
--- NOTE | 2021-01-31 09:44 | PDOC ---
PROGRESS NOTES Date of Service DATE: 01/31/21 TIME: 09:39 Subjective Subjective She c/o right knee joint pain while up with physical therapy yesterday. Objective Objective Vital Signs Date Time Temp Pulse Resp B/P (MAP) Pulse Ox O2 Delivery O2 Flow Rate FiO2 01/31/21 08:28 Room Air 01/31/21 07:00 98.1 99 18 127/58 (81) 95 98.1 Intake and Output 01/31/21 07:00 Intake Total 680 ml Output Total 775 ml Balance -95 ml Intake Oral 680 ml Output Urine Total 775 ml Physical Exam Physical Exam She is awake supine in bed and had painfully limited knee joint ROM with effusion,right>left and x-rays revealed narrowing of medial knee joint line. Assessment Assessment Problems Medical Problems: (1) Generalized pain Status: Acute (2) Thoracic compression fracture Status: Acute Plan Plan of Care At her request,I have injected her right knee joint with 1 ml of depomedrol 80 mg/ 1 ml solution mixed with 2 ml of 0.25% solution under aseptic skin technique with alcohol skin prep and she tolerated the procedure satisfactorily without any side effects. Agree with plans for transfer to SNF and she can benefit from use of alta knee brace. To check with her family whether she had one or not,if not try to get her one for use while up. Comment Review of Relevant I have reviewed the following items hillary (where applicable) has been applied. Labs Laboratory Tests Test 01/30/21 06:35 01/31/21 04:15 Sodium Level 142 mmol/L (136-145) 141 mmol/L (136-145) Potassium Level 3.7 mmol/L (3.5-5.1) 3.6 mmol/L (3.5-5.1) Chloride Level 106 mmol/L (98-107) 106 mmol/L (98-107) Carbon Dioxide Level 27 mmol/L (21-32) 25 mmol/L (21-32) Anion Gap 9 (6-14) 10 (6-14) Blood Urea Nitrogen 9 mg/dL (7-20) 13 mg/dL (7-20) Creatinine 0.8 mg/dL (0.6-1.0) 0.9 mg/dL (0.6-1.0) Estimated GFR (Cockcroft-Gault) 67.7 59.1 Glucose Level 102 mg/dL (70-99) 101 mg/dL (70-99) Calcium Level 8.7 mg/dL (8.5-10.1) 9.0 mg/dL (8.5-10.1) Magnesium Level 2.0 mg/dL (1.8-2.4) White Blood Count 5.5 x10^3/uL (4.0-11.0) Red Blood Count 4.61 x10^6/uL (3.50-5.40) Hemoglobin 13.7 g/dL (12.0-15.5) Hematocrit 40.5 % (36.0-47.0) Mean Corpuscular Volume 88 fL (79-100) Mean Corpuscular Hemoglobin 30 pg (25-35) Mean Corpuscular Hemoglobin Concent 34 g/dL (31-37) Red Cell Distribution Width 14.6 % (11.5-14.5) Platelet Count 110 x10^3/uL (140-400) Neutrophils (%) (Auto) 51 % (31-73) Lymphocytes (%) (Auto) 30 % (24-48) Monocytes (%) (Auto) 16 % (0-9) Eosinophils (%) (Auto) 3 % (0-3) Basophils (%) (Auto) 1 % (0-3) Neutrophils # (Auto) 2.8 x10^3/uL (1.8-7.7) Lymphocytes # (Auto) 1.6 x10^3/uL (1.0-4.8) Monocytes # (Auto) 0.9 x10^3/uL (0.0-1.1) Eosinophils # (Auto) 0.1 x10^3/uL (0.0-0.7) Basophils # (Auto) 0.1 x10^3/uL (0.0-0.2) Laboratory Tests Test 01/31/21 04:15 White Blood Count 5.5 x10^3/uL (4.0-11.0) Red Blood Count 4.61 x10^6/uL (3.50-5.40) Hemoglobin 13.7 g/dL (12.0-15.5) Hematocrit 40.5 % (36.0-47.0) Mean Corpuscular Volume 88 fL (79-100) Mean Corpuscular Hemoglobin 30 pg (25-35) Mean Corpuscular Hemoglobin Concent 34 g/dL (31-37) Red Cell Distribution Width 14.6 % (11.5-14.5) Platelet Count 110 x10^3/uL (140-400) Neutrophils (%) (Auto) 51 % (31-73) Lymphocytes (%) (Auto) 30 % (24-48) Monocytes (%) (Auto) 16 % (0-9) Eosinophils (%) (Auto) 3 % (0-3) Basophils (%) (Auto) 1 % (0-3) Neutrophils # (Auto) 2.8 x10^3/uL (1.8-7.7) Lymphocytes # (Auto) 1.6 x10^3/uL (1.0-4.8) Monocytes # (Auto) 0.9 x10^3/uL (0.0-1.1) Eosinophils # (Auto) 0.1 x10^3/uL (0.0-0.7) Basophils # (Auto) 0.1 x10^3/uL (0.0-0.2) Sodium Level 141 mmol/L (136-145) Potassium Level 3.6 mmol/L (3.5-5.1) Chloride Level 106 mmol/L (98-107) Carbon Dioxide Level 25 mmol/L (21-32) Anion Gap 10 (6-14) Blood Urea Nitrogen 13 mg/dL (7-20) Creatinine 0.9 mg/dL (0.6-1.0) Estimated GFR (Cockcroft-Gault) 59.1 Glucose Level 101 mg/dL (70-99) Calcium Level 9.0 mg/dL (8.5-10.1) Microbiology 01/28/21 Urine Culture - Final, Complete 01/28/21 Antimicrobic Susceptibility - Final, Complete Medications Current Medications Fosfomycin Tromethamine (Monurol) 3 gm 1X ONCE PO Last administered on 01/28/21at 17:05; Start 01/28/21 at 16:45; Stop 01/28/21 at 16:46; Status DC Ondansetron HCl (Zofran) 4 mg PRN Q8HRS PRN IVP NAUSEA/VOMITING; Start 01/28/21 at 20:00; Stop 01/29/21 at 19:59; Status DC Sodium Chloride 1,000 ml @ 75 mls/hr [id number] IV Last administered on 01/29/21at 09:20; Start 01/28/21 at 20:00; Stop 01/29/21 at 19:59; Status DC Diltiazem HCl (Cardizem Iv Push) 10 mg 1X ONCE IVP Last administered on 01/28/21at 21:00; Start 01/28/21 at 21:00; Stop 01/28/21 at 21:01; Status DC Diltiazem HCl 125 mg/Sodium Chloride 125 ml @ 5 mls/hr 1X ONCE IV Last administered on 01/28/21at 20:59; Start 01/28/21 at 21:00; Stop 01/29/21 at 21:59; Status DC Ceftriaxone Sodium (Rocephin) 1 gm Q24H IVP Last administered on 01/30/21at 11:0 0; Start 01/29/21 at 11:00 Sodium Chloride (Normal Saline Flush) 3 ml QSHIFT PRN IV AFTER MEDS AND BLOOD DRAWS; Start 01/29/21 at 13:30 Acetaminophen (Tylenol) 650 mg PRN Q4HRS PRN PO TEMP OVER 100.4F OR MILD PAIN; Start 01/29/21 at 13:30 Al Hydroxide/Mg Hydroxide (Mylanta Plus Xs) 30 ml PRN DAILY PRN PO HEARTBURN / GAS; Start 01/29/21 at 13:30 Docusate Sodium (Colace) 100 mg PRN BID PRN PO HARD STOOLS; Start 01/29/21 at 13:30 Albuterol Sulfate (Ventolin Neb Soln) 2.5 mg PRN Q4HRS PRN NEB SHORTNESS OF BREATH; Start 01/29/21 at 13:30 Guaifenesin (Robitussin) 200 mg PRN Q4HRS PRN PO COUGH; Start 01/29/21 at 13:30 Enoxaparin Sodium (Lovenox 30mg Syringe) 30 mg Q24H SQ Last administered on 01/30/21at 13:50; Start 01/29/21 at 14:00 Digoxin (Lanoxin) 250 mcg 1X ONCE IV Last administered on 01/29/21at 16:12; Start 01/29/21 at 16:00; Stop 01/29/21 at 16:03; Status DC Diclofenac Sodium (Voltaren) 1 nazario BID TP Last administered on 01/30/21at 21:37; Start 01/29/21 at 21:00 Lidocaine (Lidoderm) 1 patch DAILY TD Last administered on 01/30/21at 09:09; Start 01/29/21 at 17:30 Diltiazem HCl (Cardizem 24hr Cd) 120 mg 1X ONCE PO Last administered on 01/29/21at 21:13; Start 01/29/21 at 19:45; Stop 01/29/21 at 19:48; Status DC Lactobacillus Rhamnosus (Culturelle) 1 cap BID PO Last administered on 01/30/21at 21:37; Start 01/30/21 at 09:00 Methylprednisolone Acetate (DEPO-Medrol 80MG VIAL) 40 mg 1X ONCE INJ ; Start 01/30/21 at 10:00; Stop 01/30/21 at 10:01; Status DC Bupivacaine HCl (Sensorcaine-Mpf 0.25%) 10 ml 1X ONCE IJ ; Start 01/30/21 at 10:00; Stop 01/30/21 at 10:01; Status DC Metoprolol Succinate (Toprol Xl) 12.5 mg DAILY PO Last administered on 01/30/21at 13:49; Start 01/30/21 at 12:00 Active Scripts Active Reported No Known Medications Prior To Admisstion (Info) Each 1 Each DAILY Vitals/I & O Vital Sign - Last 24 Hours 01/30/21 01/30/21 01/30/21 01/30/21 11:26 13:49 14:30 19:00 Temp 98.0 99.2 100.4 98.0 99.2 100.4 Pulse 88 88 90 92 Resp 18 18 20 B/P (MAP) 105/65 (78) 105/65 111/55 (73) 118/61 (80) Pulse Ox 96 94 96 O2 Delivery Room Air Room Air Room Air 01/30/21 01/30/21 01/31/21 01/31/21 19:40 22:43 02:50 07:00 Temp 99.5 99.3 98.1 99.5 99.3 98.1 Pulse 88 82 99 Resp 16 14 18 B/P (MAP) 121/65 (83) 114/57 (76) 127/58 (81) Pulse Ox 93 94 95 O2 Delivery Room Air Room Air Room Air Room Air 01/31/21 08:28 O2 Delivery Room Air Intake and Output 01/30/21 01/30/21 01/31/21 15:00 23:00 07:00 Intake Total 480 ml 200 ml 0 ml Output Total 100 ml 300 ml 375 ml Balance 380 ml -100 ml -375 ml Justifications for Admission Other Justification A FIB RVR, GAIT INSTABILITY KAVIN MCGUIRE MD Jan 31, 2021 09:44
[2021-01-31] MEDS: LACTOBACILLUS RHAMNOSUS GG 1 CAPSULE. PO SCH (10:01)
[2021-01-31] MEDS: LIDOCAINE (700MG/PATCH) PATCH. TD SCH (10:01)
[2021-01-31] MEDS: cefTRIAXone IV Push 1 GM VIAL. IVP SCH (10:01)
[2021-01-31] MEDS: METOPROLOL SUCC 24HR ER 25 MG TAB.ER.24H. PO SCH (10:01)
[2021-01-31] MEDS: DICLOFENAC SODIUM 1% TOPICAL GEL 100GM TUBE. TP SCH (10:02)
--- NOTE | 2021-01-31 10:54 | PDOC3 ---
Discharge Summary Date of Admission: Jan 29, 2021 Date of Discharge: Jan 31, 2021 Follow-Up: 1-2 days Admitting Diagnosis comment: History of Present Illness History of Present Illness 89 yo blind F presented to the ED brought in by EMS stating "My ribs hurt all over, I am just old." she "has a knot" in her left breast. Reports limited mobility roommate called 911 because of this. / her left kidney hurts. States if she does get of bed she crawls. Denies any fall, head injury or trauma. / No midline back pain over thoracic [id number] ct c/w T7 and T12 compression fractures TROPONIN I NEG X 3 Admitted with chest wall pain, tachycardia, inability for self care, patient is legally blind, noted to be hypotensive, iv fluids ordered, probable UTI , Noted to be in afib with RVR , new onset TACHYCARDIA likely associated with acute pain/ Afib RVR iv CARDIZEM DRIP STARTED IN ER D/C MEDS SEE MAR COMPLICATIONS NONE CONSULTS DR MCGUIRE DISCHARGE DX Assessment/Plan IMPRESSION: Acute generalized pain rib cage pain. / her left breast area Inability to ambulate Compression deformities at T7 and T11. with focal tenderness, TACHYCARDIA likely associated with acute pain/ Afib RVR Legal blindness PLAN ADMIT Consult DR MCGUIRE Consult cardiology Cardizem drip started in ER PT/OT ECHO Rehab consult SNU eval Orthostatic BP/ PULSE MCOT TTE and TSH. DVT PROPHYLAXIS consider asking Interventional Radiology for consideration of kyphoplasty D/W ER Justifications for Admission Justifications for Admission Other Justification ELADIO BELL MD Jan 29, 2021 09:48 History of Present Illness History of Present Illness Identification/Chief Complaint Chief Complaint back and rib pain, inability to ambulate, new onset a fib in ER , A FIB RVR rib cage pain. / around her left breast area History of Present Illness History of Present Illness 89 yo blind F presented to the ED brought in by EMS stating "My ribs hurt all over, I am just old." she "has a knot" in her left breast. Reports limited mobility roommate called 911 because of this. / her left kidney hurts. States if she does get of bed she crawls. Denies any fall, head injury or trauma. / No midline back pain over thoracic [id number] ct c/w T7 and T12 compression fractures TROPONIN I NEG X 3 Admitted with chest wall pain, tachycardia, inability for self care, patient is legally blind, noted to be hypotensive, iv fluids ordered, probable UTI , Noted to be in afib with RVR , new onset TACHYCARDIA likely associated with acute pain/ Afib RVR iv CARDIZEM DRIP STARTED IN ER Past Medical History Past Medical History Past Medical History Past Surgical History: Other Additional Past Surgical Histo: unknown Smoking Status: Never Smoker Alcohol Use: None FHX HTN Cardiovascular: HTN Hepatobiliary: No pertinent hx Musculoskeletal: low back pain, Osteoarthritis Renal/: No pertinent hx, Chronic renal insuff Dermatology: No pertinent hx Family History Family History: Hypertension Social History Smoke: No ALCOHOL: none Drugs: None Current Problem List Problem List Problems Medical Problems: (1) Generalized pain Status: Acute (2) Thoracic compression fracture Status: Acute Current Medications Current Medications Current Medications Fosfomycin Tromethamine (Monurol) 3 gm 1X ONCE PO Last administered on 01/28/21at 17:05; Start 01/28/21 at 16:45; Stop 01/28/21 at 16:46; Status DC Ondansetron HCl (Zofran) 4 mg PRN Q8HRS PRN IVP NAUSEA/VOMITING; Start 01/28/21 at 20:00; Stop 01/29/21 at 19:59 Sodium Chloride 1,000 ml @ 75 mls/hr [id number] IV Last administered on 01/28/21at 20:00; Start 01/28/21 at 20:00; Stop 01/29/21 at 19:59 Diltiazem HCl (Cardizem Iv Push) 10 mg 1X ONCE IVP Last administered on 01/28/21at 21:00; Start 01/28/21 at 21:00; Stop 01/28/21 at 21:01; Status DC Diltiazem HCl 125 mg/Sodium Chloride 125 ml @ 5 mls/hr 1X ONCE IV Last administered on 01/28/21at 20:59; Start 01/28/21 at 21:00; Stop 01/29/21 at 21:59 Active Scripts Active Reported No Known Medications Prior To Admisstion (Info) Each 1 Each DAILY Allergies Allergies: Coded Allergies: No Known Drug Allergies (Unverified , 01/13/21) ROS Review of System 14 PT ROS OTHERWISE NEG General: YES: Fatigue; No: Chills, Night Sweats, Malaise, Appetite, Other PSYCHOLOGICAL ROS: YES: Anxiety; No: Behavioral Disorder, Concentration difficultie, Decreased libido, Depression, Disorientation, Hallucinations, Hostility, Irritablity, Memory difficulties, Mood Swings, Obsessive thoughts, Physical abuse, Sexual abuse, Sleep disturbances, Suicidal ideation, Other Eyes: Yes Loss of vision HEENT: No: Heacaches, Visual Changes, Hearing change, Nasal congestion, Nasal discharge, Oral lesions, Sinus pain, Sore Throat, Epistaxis, Sneezing, Snoring, Tinnitus, Vertigo, Vocal changes, Other ALLERGY AND IMMUNOLOGY: No: Hives, Insect Bite Sensitivity, Itchy/Watery Eyes, Nasal Congestion, Post Nasal Drip, Seasonal Allergies, Other Hematological and Lymphatic: No: Bleeding Problems, Blood Clots, Blood Transfusions, Brusing, Night Sweats, Pallor, Swollen Lymph Nodes, Other ENDOCRINE: No: Breast Changes, Galactorrhea, Hair Pattern Changes, Hot Flashes, Malaise/lethargy, Mood Swings, Palpitations, Polydipsia/polyuria, Skin Changes, Temperature Intolerance, Unexpected Weight Changes, Other Breast: No New/Changing Breast Lumps, No Nipple changes, No Nipple discharge, No Other Respiratory: No: Cough, Hemoptysis, Orthopnea, Pleuritic Pain, Shortness of breath, SOB with excertion, Sputum Changes, Stridor, Tachypnea, Wheezing, Other Cardiovascular: No Chest Pain, No Palpitations, No Orthopnea, No Paroxysmal Noc. Dyspnea, No Edema, No Lt Headedness, No Other Gastrointestinal: No Nausea, No Vomiting, No Abdominal Pain, No Diarrhea, No Constipation, No Melena, No Hematochezia, No Other Genitourinary: No Dysuria, No Frequency, No Incontinence, No Hematuria, No Retention, No Discharge, No Urgency, No Pain, No Flank Pain, No Other, No , No , No , No , No , No , No Musculoskeletal: Yes Gait Disturbance, Yes Joint Stiffness, Yes Muscular Weakness Neurological: Yes Gait Disturbance; No Behavorial Changes, No Bowel/Bladder ControlChng, No Confusion, No Dizziness, No Headaches, No Impaired Coord/balance, No Memory Loss, No Numbness/Tingling, No Seizures, No Speech Problems, No Tremors, No Visual Changes, No Weakness, No Other Skin: Yes Dry Skin; No Eczema, No Hair Changes, No Lumps, No Mole Changes, No Mottling, No Nail Changes, No Pruritus, No Rash, No Skin Lesion Changes, No Other, No Acne Acute generalized pain rib cage pain. / her left breast area Inability to ambulate Compression deformities at T7 and T11. with focal tenderness, TACHYCARDIA likely associated with acute pain/ Afib RVR Legal blindness PLAN HOSPITAL COURSE 9-16 Acute generalized pain rib cage pain. / her left breast area Inability to ambulate Compression deformities at T7 and T11. with focal tenderness, TACHYCARDIA likely associated with acute pain/ Afib RVR Legal blindness NEEDS SNF, [employer] Consult DR MCGUIRE Consult cardiology Cardizem drip started in ER PT/OT ECHO Rehab consult SNU eval Orthostatic BP/ PULSE MCOT TTE and TSH. DVT PROPHYLAXIS consider asking Interventional Radiology for consideration of kyphoplasty D/W RN AND CASE MGT 01-31 Acute generalized pain rib cage pain. / her left breast area Inability to ambulate Compression deformities at T7 and T11. with focal tenderness, TACHYCARDIA likely associated with acute pain/ Afib RVR Legal blindness NEEDS SNF, [employer] Consult DR MCGUIRE Consult cardiology Cardizem drip started in ER PT/OT ECHO Rehab consult SNU eval Orthostatic BP/ PULSE MCOT TTE and TSH. DVT PROPHYLAXIS consider asking Interventional Radiology for consideration of kyphoplasty D/W RN AND CASE MGT D/C TO SNF TODAY [facility] D/C PLANNING 33 MIN Vitals Vitals Vital Signs Date Time Temp Pulse Resp B/P (MAP) Pulse Ox O2 Delivery O2 Flow Rate FiO2 01/31/21 02:50 99.3 82 14 114/57 (76) 94 Room Air 99.3 Physical Exam General: Alert, Oriented X3, Cooperative, No acute distress Heart: Regular rate (WAP), Normal S1, Normal S2, Other (2/6 ssytolic murmur to LLS border) Lungs: Clear Abdomen: Normal bowel sounds, Soft, No tenderness, No hepatosplenomegaly, No masses Extremities: No clubbing, No cyanosis, No edema Skin: No significant lesion FINAL DIAGNOSIS Problems Medical Problems: (1) Generalized pain Status: Acute (2) Thoracic compression fracture Status: Acute Brief Hospital Course Ms. Carlos is a 89 old [sex] who presented with [ACUTE COMPRESSION FX LUMBAR SPINE, GAIT INSTABILITY ] CONDITION AT DISCHARGE: Improved Discharge Medications Current Medications Fosfomycin Tromethamine (Monurol) 3 gm 1X ONCE PO Last administered on 01/28/21at 17:05; Start 01/28/21 at 16:45; Stop 01/28/21 at 16:46; Status DC Ondansetron HCl (Zofran) 4 mg PRN Q8HRS PRN IVP NAUSEA/VOMITING; Start 01/28/21 at 20:00; Stop 01/29/21 at 19:59; Status DC Sodium Chloride 1,000 ml @ 75 mls/hr [id number] IV Last administered on 01/29/21at 09:20; Start 01/28/21 at 20:00; Stop 01/29/21 at 19:59; Status DC Diltiazem HCl (Cardizem Iv Push) 10 mg 1X ONCE IVP Last administered on 01/28/21at 21:00; Start 01/28/21 at 21:00; Stop 01/28/21 at 21:01; Status DC Diltiazem HCl 125 mg/Sodium Chloride 125 ml @ 5 mls/hr 1X ONCE IV Last administered on 01/28/21at 20:59; Start 01/28/21 at 21:00; Stop 01/29/21 at 21:59; Status DC Ceftriaxone Sodium (Rocephin) 1 gm Q24H IVP Last administered on 01/31/21at 10:01; Start 01/29/21 at 11:00 Sodium Chloride (Normal Saline Flush) 3 ml QSHIFT PRN IV AFTER MEDS AND BLOOD DRAWS; Start 01/29/21 at 13:30 Acetaminophen (Tylenol) 650 mg PRN Q4HRS PRN PO TEMP OVER 100.4F OR MILD PAIN; Start 01/29/21 at 13:30 Al Hydroxide/Mg Hydroxide (Mylanta Plus Xs) 30 ml PRN DAILY PRN PO HEARTBURN / GAS; Start 01/29/21 at 13:30 Docusate Sodium (Colace) 100 mg PRN BID PRN PO HARD STOOLS; Start 01/29/21 at 13:30 Albuterol Sulfate (Ventolin Neb Soln) 2.5 mg PRN Q4HRS PRN NEB SHORTNESS OF BREATH; Start 01/29/21 at 13:30 Guaifenesin (Robitussin) 200 mg PRN Q4HRS PRN PO COUGH; Start 01/29/21 at 13:30 Enoxaparin Sodium (Lovenox 30mg Syringe) 30 mg Q24H SQ Last administered on 01/30/21at 13:50; Start 01/29/21 at 14:00 Digoxin (Lanoxin) 250 mcg 1X ONCE IV Last administered on 01/29/21at 16:12; Start 01/29/21 at 16:00; Stop 01/29/21 at 16:03; Status DC Diclofenac Sodium (Voltaren) 1 nazario BID TP Last administered on 01/31/21at 10:02; Start 01/29/21 at 21:00 Lidocaine (Lidoderm) 1 patch DAILY TD Last administered on 01/31/21at 10:01; Start 01/29/21 at 17:30 Diltiazem HCl (Cardizem 24hr Cd) 120 mg 1X ONCE PO Last administered on 01/15 10/04at 21:13; Start 01/29/21 at 19:45; Stop 01/29/21 at 19:48; Status DC Lactobacillus Rhamnosus (Culturelle) 1 cap BID PO Last administered on 01/31/21at 10:01; Start 01/30/21 at 09:00 Methylprednisolone Acetate (DEPO-Medrol 80MG VIAL) 40 mg 1X ONCE INJ Last administered on 01/30/21at 10:00; Start 01/30/21 at 10:00; Stop 01/30/21 at 10:01; Status DC Bupivacaine HCl (Sensorcaine-Mpf 0.25%) 10 ml 1X ONCE IJ Last administered on 01/30/21at 10:00; Start 01/30/21 at 10:00; Stop 01/30/21 at 10:01; Status DC Metoprolol Succinate (Toprol Xl) 12.5 mg DAILY PO Last administered on 01/31/21at 10:01; Start 01/30/21 at 12:00 Active Scripts Active Reported No Known Medications Prior To Admisstion (Info) Each 1 Each DAILY Vital Signs Vital Signs Date Time Temp Pulse Resp B/P (MAP) Pulse Ox O2 Delivery O2 Flow Rate FiO2 01/31/21 10:01 99 127/58 01/31/21 08:28 Room Air 01/31/21 07:00 98.1 18 95 98.1 Labs Laboratory Tests Test 01/30/21 06:35 01/31/21 04:15 Sodium Level 142 mmol/L (136-145) 141 mmol/L (136-145) Potassium Level 3.7 mmol/L (3.5-5.1) 3.6 mmol/L (3.5-5.1) Chloride Level 106 mmol/L (98-107) 106 mmol/L (98-107) Carbon Dioxide Level 27 mmol/L (21-32) 25 mmol/L (21-32) Anion Gap 9 (6-14) 10 (6-14) Blood Urea Nitrogen 9 mg/dL (7-20) 13 mg/dL (7-20) Creatinine 0.8 mg/dL (0.6-1.0) 0.9 mg/dL (0.6-1.0) Estimated GFR (Cockcroft-Gault) 67.7 59.1 Glucose Level 102 mg/dL (70-99) 101 mg/dL (70-99) Calcium Level 8.7 mg/dL (8.5-10.1) 9.0 mg/dL (8.5-10.1) Magnesium Level 2.0 mg/dL (1.8-2.4) White Blood Count 5.5 x10^3/uL (4.0-11.0) Red Blood Count 4.61 x10^6/uL (3.50-5.40) Hemoglobin 13.7 g/dL (12.0-15.5) Hematocrit 40.5 % (36.0-47.0) Mean Corpuscular Volume 88 fL (79-100) Mean Corpuscular Hemoglobin 30 pg (25-35) Mean Corpuscular Hemoglobin Concent 34 g/dL (31-37) Red Cell Distribution Width 14.6 % (11.5-14.5) Platelet Count 110 x10^3/uL (140-400) Neutrophils (%) (Auto) 51 % (31-73) Lymphocytes (%) (Auto) 30 % (24-48) Monocytes (%) (Auto) 16 % (0-9) Eosinophils (%) (Auto) 3 % (0-3) Basophils (%) (Auto) 1 % (0-3) Neutrophils # (Auto) 2.8 x10^3/uL (1.8-7.7) Lymphocytes # (Auto) 1.6 x10^3/uL (1.0-4.8) Monocytes # (Auto) 0.9 x10^3/uL (0.0-1.1) Eosinophils # (Auto) 0.1 x10^3/uL (0.0-0.7) Basophils # (Auto) 0.1 x10^3/uL (0.0-0.2) Laboratory Tests Test 01/31/21 04:15 White Blood Count 5.5 x10^3/uL (4.0-11.0) Red Blood Count 4.61 x10^6/uL (3.50-5.40) Hemoglobin 13.7 g/dL (12.0-15.5) Hematocrit 40.5 % (36.0-47.0) Mean Corpuscular Volume 88 fL (79-100) Mean Corpuscular Hemoglobin 30 pg (25-35) Mean Corpuscular Hemoglobin Concent 34 g/dL (31-37) Red Cell Distribution Width 14.6 % (11.5-14.5) Platelet Count 110 x10^3/uL (140-400) Neutrophils (%) (Auto) 51 % (31-73) Lymphocytes (%) (Auto) 30 % (24-48) Monocytes (%) (Auto) 16 % (0-9) Eosinophils (%) (Auto) 3 % (0-3) Basophils (%) (Auto) 1 % (0-3) Neutrophils # (Auto) 2.8 x10^3/uL (1.8-7.7) Lymphocytes # (Auto) 1.6 x10^3/uL (1.0-4.8) Monocytes # (Auto) 0.9 x10^3/uL (0.0-1.1) Eosinophils # (Auto) 0.1 x10^3/uL (0.0-0.7) Basophils # (Auto) 0.1 x10^3/uL (0.0-0.2) Sodium Level 141 mmol/L (136-145) Potassium Level 3.6 mmol/L (3.5-5.1) Chloride Level 106 mmol/L (98-107) Carbon Dioxide Level 25 mmol/L (21-32) Anion Gap 10 (6-14) Blood Urea Nitrogen 13 mg/dL (7-20) Creatinine 0.9 mg/dL (0.6-1.0) Estimated GFR (Cockcroft-Gault) 59.1 Glucose Level 101 mg/dL (70-99) Calcium Level 9.0 mg/dL (8.5-10.1) Allergies Allergies Coded Allergies Type Severity Reaction Last Updated Verified No Known Drug Allergies 01/13/21 No Disposition/Orders: Other (D/C TO SNF ) Justicifation of Admission Dx: Justifications for Admission: Justification of Admission Dx: Yes Fracture: Fracture ELADIO BELL MD Jan 31, 2021 10:54
[2021-01-31 11:00] VITALS: BP 110/56
[2021-01-31] MEDS ORDERED: LACT1CAP19 PO (11:01)
[2021-01-31] MEDS ORDERED: ACET325T21 PO (11:01)
[2021-01-31] MEDS ORDERED: METO-239 PO (11:01)
[2021-01-31] MEDS ORDERED: LIDO700A21 TD (11:01)
[2021-01-31] MEDS ORDERED: CIPR250T30 PO (11:01)
[2021-01-31] MEDS ORDERED: DOCU-109 PO (11:01)
[2021-01-31] MEDS ORDERED: MAG30ORA2 PO (11:01)
--- NOTE | 2021-01-31 11:02 | SNU/HH DC ---
DISCHARGE ORDERS DISCHARGE INFORMATION: DISCHARGE DATE: Jan 31, 2021 FINAL DIAGNOSIS Problems Medical Problems: (1) Generalized pain Status: Acute (2) Thoracic compression fracture Status: Acute CONDITION ON DISCHARGE: Stable CODE STATUS: Code Status: Full INTERMEDIATE: SNF STAY <30 DAYS: Yes HOSPICE: HOSPICE: No HOSPICE EVAL & TREAT: No LTAC: ADMIT TO LTAC: No POST DISCHARGE ORDERS: ACTIVITY ORDERS: Activity as tolerated, Progressive ambulation DIET AFTER DISCHARGE: Cardiac CHECKS AFTER DISCHARGE: CHECKS AFTER DISCHARGE: Check blood press - daily FOLLOW-UP: PHYSICIAN FOLLOW-UP: PCP AT SNF TODAY TREATMENT/EQUIPMENT ORDERS: ADAPTIVE EQUIPMENT NEEDED: Front wheeled walker Physical Therapy For: Evalulation/Treatment Occupational Therapy For: Evaluation/Treatment Speech Language Pathology For: Evaluation/Treatment DISCHARGE MEDICATIONS: Home Meds Active Scripts Ciprofloxacin Hcl (CIPRO) 250 Mg Tablet, 1 TAB PO BID for UTI for 7 Days, #14 TAB 0 Refills Prov:ELADIO BELL MD 01/31/21 Lidocaine (Lidocaine PATCH ) 1 Each Adh..patch, 1 PATCH TD DAILY for LOW BACK PAIN for 30 Days, #30 PATCH Prov:ELADIO BELL MD 01/31/21 Lactobacillus Rhamnosus Gg (CULTURELLE) 1 Each Cap.sprink, 1 CAP PO BID for PREVENT CONSTIPATION for 30 Days, #60 CAP Prov:ELADIO BELL MD 01/31/21 Docusate Sodium (COLACE) 100 Mg Capsule, 100 MG PO PRN BID PRN for HARD STOOLS for 30 Days, #60 CAP Prov:ELADIO BELL MD 01/31/21 Mag Hydrox/Al Hydrox/Simeth (MAG-AL PLUS XS SUSPENSION) 30 Ml Oral.susp, 30 ML PO PRN DAILY PRN for HEARTBURN / GAS for 14 Days, #120 MISC Prov:ELADIO BELL MD 01/31/21 Acetaminophen (ACETAMINOPHEN) 325 Mg Tablet, 650 MG PO PRN Q4HRS PRN for TEMP OVER 100.4F OR MILD PAIN for 30 Days, #100 TAB Prov:ELADIO BELL MD 01/31/21 Metoprolol Succinate (METOPROLOL SUCCINATE ( XL )) 25 Mg Tab.er.24h, 12.5 MG PO DAILY for BLOOD PRESSURE for 30 Days, #15 TAB.SR Prov:ELADIO BELL MD 9/17/21 Discontinued Reported Medications Info (NO KNOWN MEDICATIONS PRIOR TO ADMISSTION) Each, 1 EACH MC DAILY for NONE, EACH 01/13/21 ELADIO BELL MD Jan 31, 2021 11:02
--- NOTE | 2021-01-31 11:24 | NUR ---
SS following up with discharge planning. SS reviewed pt chart and discussed with pt RN. Pt is currently on room air. COVID19 negative. PT/OT recommended [facility]. Pt unvaccinated. [facility] declined pt. [facility] in [place] accepted pt but reported that they would not have bed available until 02/03/2021. Referral and discharge orders phoned and faxed to [facility], ; fax [phone]. SS currently awaiting acceptance decision at this time and will proceed accordingly with discharge planning. Pt's caregiver in room with pt and both pt and caregiver are agreeable to discharge plan at this time. SS will continue to follow for discharge planning. Addendum: 01/31/21 at 1205 by HERNANDO MCGARRY SS Pt accepted at [facility]. Pt will discharge today and go to [place]. [facility] between 1330 and 1400 via [facility]. Transportation arrangements made by [place]. Pt, pt's RN, and pt's caregiver notified.
--- NOTE | 2021-01-31 13:49 | NUR ---
Discharge Note: CHAS DAVID Discharge instructions and discharge home medications reviewed with [facility] and a copy given. All questions have been answered and understanding verbalized.
== END 2021-01-31 13:40 | DRG 552 ==
LOC: ER 14:02 → 5 NORTH 19:38 → 6 SOUTH 23:08 → OBSVTOIN 01-29 15:06
PROVIDERS: ADMIT Family Medicine; ATTEND Family Medicine
DX: M43.8X4 Other specified deforming dorsopathies, thoracic region (principal); M48.54XA Collapsed vertebra, not elsewhere classified, thoracic region, initial encounter for fracture; N39.0 Urinary tract infection, site not specified; I47.1 Supraventricular tachycardia; M48.56XA Collapsed vertebra, not elsewhere classified, lumbar region, initial encounter for fracture; G62.9 Polyneuropathy, unspecified; H54.8 Legal blindness, as defined in USA; I10 Essential (primary) hypertension; I48.91 Unspecified atrial fibrillation; M19.90 Unspecified osteoarthritis, unspecified site; Z82.49 Family history of ischemic heart disease and other diseases of the circulatory system; Z91.81 History of falling
CPT/HCPCS: 36415; 71045; 71250; 73565; 80048; 80053; 80307; 81001; 83690; 83735; 83880; 84443; 84484; 85025; 87077; 87086; 87186; 87426; 93005; 93306; 96365; 96376; G0378; G0379; J0696; J1040; J1160; J1650; J3490; J7030; U0003; U0005; 97116-GP; 97530-GO; 97530-GP; 99285-25